=== PATIENT | female | born 1960 | race Caucasian/White ===

== ENCOUNTER 2017-03-27 19:10 | Emergency (ER) | payer MEDICARE, MEDICAID ==
[~2017-03-27 19:10] MED LIST: ISOVUE-370 76%-LOCM 1 ML ONE
[2017-03-27 19:33] LABS: Bilirubin Negative (Negative); Blood, Urine Negative (Negative); Glucose, Urine (Dipstick) Negative (Negative); Ketone, Urine Negative (Negative); Nitrite Negative (Negative); Protein, Urine (Dipstick) Negative (Neg-Trace); Urobilinogen 0.2 mg/dL (0.2-1.0)
[2017-03-27 19:36] LABS: Bacteria/HPF None Seen HPF (None Seen); Hyaline Casts/LPF 0-3 HYALINE CAST LPF (0-3 Hyaline); RBC/HPF 0-3 HPF (0-3); Squamous Epithelial 0-3 HPF (0-3); WBC/HPF 0-3 HPF (0-3)
[2017-03-27 19:38] LABS: #Basophils 0.1 thou/uL (0.0-0.2); #Eosinphils 0.3 thou/uL (0.0-0.7); #Lymphocytes 2.5 thou/uL (1.20-3.40); #Monocytes 0.5 thou/uL (0.11-0.59); %Basophils 0.6 % (0.0-1.0); %Eosinophils 3.9 % (0.0-10.0); %Lymphocytes 30.3 % (21.0-51.0); %Monocytes 5.8 % (0.0-10.0); Hematocrit 39.2 % (36.0-47.0); Mean Platelet Volume 9.1 fL (7.4-10.4); Red Blood Cell (RBC) Count 4.31 mill/uL (4.20-5.40); White Blood Cell (WBC) Count 8.4 thou/uL (4.8-10.8)
[2017-03-27 20:00] LABS: ALT (SGPT) 11 U/L (8-55); AST (SGOT) 13 U/L (5-34); Alkaline Phosphatase 100 U/L (40-150); Anion Gap 8 mmol/L (10-20); BUN (Urea Nitrogen) 16 mg/dL (9.8-20.1); Bilirubin, Total 0.2 mg/dL (0.2-1.2); Calc. Creatinine Clearance 0 mL/min (70-130); Calcium 9.3 mg/dL (7.8-10.44); Carbon Dioxide 26 mmol/L (22-29); Chloride 106 mmol/L (98-107); Estimated GFR-MDRD Greater than 90; Globulin 3.6 g/dL (2.4-3.5); Lipase 43 U/L (8-78); Protein, Total 7.4 g/dL (6.0-8.3)
[2017-03-27 21:02] LABS: PTT 29.6 SEC (22.9-36.1); Prothrombin Time 13.1 SEC (12.0-14.7)
[2017-03-27] MEDS ORDERED: Ondansetron HCl/PF 4 MG/2 ML Vial ONE (21:38)
[2017-03-27] MEDS ORDERED: Morphine 2 MG/ML SYRINGE ONE (21:38)
--- NOTE | 2017-03-27 21:49 | CT ---
CT OF ABDOMEN AND PELVIS PERFORMED WITH INTRAVENOUS CONTRAST: History: Abdominal pain x 1 week. Comparison: 01-23-17 FINDINGS: The lung bases are clear. Moderately large hiatal hernia is noted. The liver, spleen, and pancreas regions show no focal abnor malities. The spleen measures 12.5 cm. The gallbladder has been removed. Right and left adrenal glands and right and left kidneys are normal in size. There is no significant periaortic or mesenteric adenopathy. CT OF PELVIS WITH CONTRAST ENHANCEMENT: There appear to be appendectomy changes. The uterus also appears to have been removed. No adenopathy , mass, or free fluid. There are arthritic changes of the spine. IMPRESSION: 1. Large hiatal hernia. 2. Post op cholecystectomy change. 3. No acute abnormalities of the abdomen or pelvis. POS: [facility]
[2017-03-27] MEDS ORDERED: diphenhydrAMINE 50 MG/ML VIAL ONE (22:03)
[2017-03-27] MEDS ORDERED: Metoclopramide HCl 10 MG/2 ML VIAL ONE (22:42)
[2017-03-27] MEDS ORDERED: Pantoprazole 40 MG VIAL ONE (22:42)
== END 2017-03-27 23:46 | disposition home or self-care (01) ==
LOC: ERS 19:10
DX: R10.84 Generalized abdominal pain (principal); J45.909 Unspecified asthma, uncomplicated; E66.9 Obesity, unspecified; Z79.899 Other long term (current) drug therapy
CPT/HCPCS: 36415; 74177; 80053; 81003; 81015; 82274; 83690; 85025; 85610; 85730; 96361; 96372; 96374; 96375; C9113; J1200; J2270; J2405; J2765

== ENCOUNTER 2017-06-13 17:00 | Emergency (ER) | payer MEDICARE, MEDICAID ==
[2017-06-13] MEDS ORDERED: HYDROcodone/Acetaminophen 10/325 mg Tablet ONE (19:31)
--- NOTE | 2017-06-13 20:06 | ULT ---
VENOUS DOPPLER ULTRASOUND OF THE LEFT UPPER EXTREMITY 06/13/17 HISTORY: Left arm pain, concern for infection of the central line. Status post central line placement in t 2016. TECHNIQUE: Chavez scale ultrasound with color flow and spectral doppler imaging of the deep venous system of the l eft upper extremity is performed. FINDINGS: There is normal flow and spectral waveforms with associated compression in the left internal jugular, subclavian, axillary, brachial, radial, ulnar, basilic and cephalic veins. IMPRESSION: No evidence of DVT in the left upper extremity. POS: [facility]
--- NOTE | 2017-06-13 21:18 | RAD ---
LEFT HUMERUS TWO VIEWS 06/13/17 HISTORY: Left arm pain. Concern for infection. Status post central line in January. FINDINGS/IMPRESSION: No bony abnormality seen. POS: [facility]
--- NOTE | 2017-06-13 21:24 | RAD ---
CERVICAL SPINE FOUR VIEWS: 06/13/17 HISTORY: Left arm pain. FINDINGS: Degenerative changes are present. Most prominent at C4-5-6-7 levels. No fractures, subluxation, or sunshine [place] destruction is seen. IMPRESSION: Cervical spondylosis. POS: [facility]
== END 2017-06-13 21:53 | disposition home or self-care (01) ==
LOC: ERS 17:00
DX: M54.12 Radiculopathy, cervical region (principal); J45.909 Unspecified asthma, uncomplicated
CPT/HCPCS: 72050

== ENCOUNTER 2017-11-30 17:41 | Inpatient (IN) | payer MEDICARE, MEDICAID ==
[2017-11-30 18:13] LABS: #Basophils 0.1 thou/uL (0.0-0.2); #Eosinphils 0.3 thou/uL (0.0-0.7); #Lymphocytes 2.7 thou/uL (1.20-3.40); #Monocytes 0.5 thou/uL (0.11-0.59); #Neutrophils 4.9 thou/uL (1.40-6.50); %Basophils 0.9 % (0.0-1.0); %Eosinophils 3.7 % (0.0-10.0); %Lymphocytes 31.6 % (21.0-51.0); %Monocytes 6.2 % (0.0-10.0); %Neutrophils 57.7 % (42.0-75.0); Hemoglobin 5.1 g/dL (12.0-16.0); Mean Corpuscular HGB CONC 27.1 g/dL (32.0-36.0); Mean Corpuscular Hemoglobin 17.6 pg (27.0-31.0); Mean Corpuscular Volume 65.1 fL (78.0-98.0); Mean Platelet Volume 10.6 fL (7.4-10.4); Platelet Count 315 thou/uL (130-400); RBC Distribution Width 19.2 % (11.5-14.5); Red Blood Cell (RBC) Count 2.88 mill/uL (4.20-5.40); White Blood Cell (WBC) Count 8.4 thou/uL (4.8-10.8)
[2017-11-30] MEDS ORDERED: Pantoprazole 40 MG VIAL ONE (18:23)
[2017-11-30 18:31] LABS: Anisocytosis MODERATE=16-30 cells (100X) (0-5/hpf); Hypochromia SLIGHT = 6-15 cells (100X) (0-5/hpf); Large Platelets SLIGHT; MDiff Complete? YES; Microcytosis SLIGHT = 6-15 cells (100X) (0-5/hpf); Ovalocytes SLIGHT = 2-5 cells (100X) (0-1/hpf); PLT Morphology Comment Appears Adequate; Poikilocytosis SLIGHT = 6-15 cells (100X) (0-5/hpf); Polychromasia MODERATE = 3-4 cells (100X) (0-2/hpf); Target Cells SLIGHT = 2-5 cells (100X) (0-1/hpf); Tear Drops SLIGHT = 2-5 cells (100X) (0-1/hpf)
[2017-11-30 18:36] LABS: CKMB 0.5 ng/mL (0-6.6); Troponin I Less than 0.010 ng/mL (< 0.028)
[2017-11-30 18:45] LABS: ALT (SGPT) Less than 7 U/L (8-55); AST (SGOT) 11 U/L (5-34); Albumin 3.9 g/dL (3.5-5.0); Alkaline Phosphatase 88 U/L (40-150); Anion Gap 11 mmol/L (10-20); BUN (Urea Nitrogen) 15 mg/dL (9.8-20.1); Bilirubin, Total 0.3 mg/dL (0.2-1.2); CK (CPK) 19 U/L (29-168); Calc. Creatinine Clearance 0 mL/min (70-130); Calcium 8.8 mg/dL (7.8-10.44); Carbon Dioxide 23 mmol/L (22-29); Chloride 107 mmol/L (98-107); Estimated GFR-MDRD Greater than 90; Globulin 3.1 g/dL (2.4-3.5); Glucose 102 mg/dL (70-105); Lipase 31 U/L (8-78); Potassium 4.2 mmol/L (3.5-5.1); Sodium 137 mmol/L (136-145)
--- NOTE | 2017-11-30 18:47 | RAD ---
FRONTAL RADIOGRAPH CHEST: 11/30/17 COMPARISON: 01/25/17 HISTORY: Abdominal pain and diarrhea. FINDINGS: Lungs appear clear. heart and mediastinal contours are unremarkable. IMPRESSION: No acute findings. POS: [facility]
[2017-11-30 20:33] LABS: Bilirubin Negative (Negative); Blood, Urine Negative (Negative); Clarity CLEAR (Clear); Glucose, Urine (Dipstick) Negative (Negative); Leukocyte Small (Negative); Nitrite Negative (Negative); Protein, Urine (Dipstick) Negative (Neg-Trace); Specific Gravity, Urine 1.023 (1.002-1.036)
[2017-11-30 20:35] LABS: Bacteria/HPF None Seen HPF (None Seen); Hyaline Casts/LPF 0-3 HYALINE CAST LPF (0-3 Hyaline); Pathc Cast-AUWi Flag 0.43 (0-2.49); RBC/HPF 0-3 HPF (0-3); Squamous Epithelial 0-3 HPF (0-3)
[2017-12-01] MEDS ORDERED: Acetaminophen 325 MG TAB PO PRN ×2 (01:46→02:15)
[2017-12-01] MEDS ORDERED: Ondansetron ODT 4 MG TAB SL PRN (01:46)
[2017-12-01] MEDS ORDERED: Ondansetron HCl/PF 4 MG/2 ML Vial IVP PRN ×2 (01:46→02:15)
[2017-12-01 01:51] VITALS: BMI 33.6
[2017-12-01] MEDS ORDERED: Bisacodyl 5 MG TAB PO PRN ×2 (02:15)
[2017-12-01] MEDS ORDERED: Loratadine 10 MG TAB PO PRN (02:15)
[2017-12-01] MEDS ORDERED: Mag-Al 1200 mg/1200 mg/30 ML UDCUP PO PRN (02:15)
[2017-12-01] MEDS ORDERED: Senokot 8.6 MG TAB PO PRN ×2 (02:15)
[2017-12-01] MEDS ORDERED: Calcium Carbonate 500 MG ChewTAB PO PRN (02:15)
[2017-12-01] MEDS ORDERED: Diabetic Tussin 200 MG/10 ML UDCUP PO PRN (02:15)
[2017-12-01] MEDS ORDERED: Benzonatate 100 MG CAP PO PRN (02:15)
[2017-12-01] MEDS ORDERED: hydrALAZINE 20 MG/ML VIAL SLOW IVP PRN (02:15)
--- NOTE | 2017-12-01 03:59 | HP ---
DATE OF ADMISSION: 11/30/2017 PRIMARY CARE PHYSICIAN: Evens Munoz MD CHIEF COMPLAINT: Abdominal pain. HISTORY OF PRESENT ILLNESS: Ms. Franks is a 57-year-old female with past medical history of gastriti s and antral erosions and duodenal ulceration leading to anemia requiring transfusion in 2017, and gl aucoma, who presented to the ER with above-mentioned complaint. History is mainly obtained by the trevin bernstein herself and extensive electronic medical records have been reviewed. The patient was last admi tted to our facility in 01/2017 with severe symptomatic anemia requiring 4 units of blood transfusion . An EGD was done by Dr. Thomas at that time and was found to have gastritis with erosions in the ant rum as well as duodenal erosions and ulcerations. At that time, she was discharged on Protonix and f errous sulfate. The patient presented to the emergency room yesterday evening with complaints of severe epigastric pa in, ongoing for about 1 week which is similar to her previous pain with bleeding ulcer. She reports that she has been having some vomiting, but has not noted any blood in her vomitus. She denies any h ematochezia or melena. She is currently not on any medications. She denies taking any pain medicati ons except for Tylenol. She does not take aspirin or any other blood thinners. She is also not taki ng iron supplements or Protonix that was described to her last time. She has not seen her primary ca re physician since her last hospitalization. She presented to PCP's today and was sent to the emerge ncy room because of the ongoing symptoms. Upon presentation to the emergency room, she was hemodynamically stable; however, she was found to nelson ve a hemoglobin of 5.1. Her serum chemistries were otherwise unremarkable. Her urinalysis was sugge stive of UTI. She was given IV antibiotic as well as 80 mg of IV Protonix and 2 units of packed RBCs and is now being admitted for severe symptomatic anemia likely secondary to peptic ulcer disease. PAST MEDICAL HISTORY: 1. History of duodenal ulcer and gastric erosions. 2. History of symptomatic anemia secondary to #1, requiring transfusion. 3. Glaucoma. 4. Noncompliance. PAST SURGICAL HISTORY: 1. EGD in 01/2017. 2. Hysterectomy. 3. Oophorectomy. 4. . ALLERGIES: No known medication allergies. HOME MEDICATIONS: She just takes eyedrops for glaucoma as per the patient. FAMILY HISTORY: Significant for hypertension and diabetes in the mother's side. SOCIAL HISTORY: No history of drug, tobacco, or alcohol abuse. REVIEW OF SYSTEMS: A 12-point review of systems was done. It is negative except for those mentioned in the history and physical. Constitutional: Weight loss or gain, ability to conduct usual activit ies. Skin: Rash, itching. Eyes: Double vision, pain. ENT/Mouth: Nose bleeding, neck stiffness, pain, tenderness. Cardiovascular: Palpitations, dyspnea on exertion, orthopnea. Respiratory: Shor tness of breath, wheezing, cough, hemoptysis, fever or night sweats. Gastrointestinal: Poor appetit e, abdominal pain, heartburn, nausea, vomiting, constipation, or diarrhea. Genitourinary: Urgency, frequency, dysuria, nocturia. Musculoskeletal: Pain, swelling. Neurologic/Psychiatric: Anxiety, d epression. Allergy/Immunologic: Skin rash, bleeding tendency. LABORATORY AND DIAGNOSTIC DATA: CBC shows hemoglobin of 5.1 with hematocrit of 18.7, which is microc ytic in nature. WBC cell count within normal limits. Serum chemistry within normal limits. Cardiac enzymes normal. Urinalysis has trace leukocyte esterase and wbc's. Chest x-ray by my review has no evidence to suggest any pleural effusion, edema, or infiltrate. PHYSICAL EXAMINATION: VITAL SIGNS: Most recent vital signs, temperature 99.4, pulse of 89, respirations 16, saturating 97% on room air, blood pressure 118/52. GENERAL: She is awake, alert, oriented x3, in no acute distress. HEENT: She appears significantly pale. Conjunctival pallor is noticed. No scleral icterus. Mucous membrane is moist and pink. No oropharyngeal exudate or erythema. Head is normocephalic, atraumati c. Pupils are equal, reactive to light and accommodation. NECK: Supple without any lymphadenopathy, JVD, or bruit. CHEST: Clear to auscultation without any wheezing, rales, or rhonchi. Rate and rhythm is regular wi thout any murmur, rubs, or gallops. ABDOMEN: Tender to palpation in the epigastric region. Soft, nontender. No guarding, rebound, or r igidity. EXTREMITIES: Free of any cyanosis, clubbing, or edema. NEUROLOGIC: Nonfocal. SKIN: Free of any rashes or bruises. Feels warm and dry to touch. PSYCHIATRIC: Normal affect. IMPRESSION AND PLAN: 1. Severe symptomatic anemia. This is most likely secondary to ongoing peptic ulcer disease and occ ult gastrointestinal losses. Given the severity of her epigastric abdominal pain, we will obtain a C T scan of the abdomen and pelvis on an urgent basis to rule out any perforation. She has received 2 units of packed RBCs and we will check her H and H after that. We will start her on gentle IV fluid hydration and monitor her hemoglobin and hematocrit closely. Currently, she is hemodynamically stabl e; however, given the severity of anemia, she will be admitted to telemetry unit. She has received 1 dose of Protonix in the emergency room and we will continue PPI IV b.i.d. We will request consultat ion with Gastroenterology for the morning and keep her n.p.o. for possible endoscopy in the morning. 2. Peptic ulcer disease. We will PPI IV b.i.d. as above. 3. Glaucoma. Continue eyedrops as home dosages. CODE STATUS: FULL CODE. Discussed with the patient. DISPOSITION: Ms. Franks is currently being admitted for severe symptomatic anemia and abdominal pain , likely due to peptic ulcer disease. Estimated length of stay is at least 2-3 midnights. Further management will depend upon patient's cl inical course.
[2017-12-01] MEDS: Sodium Chloride 0.9% 1,000 ML IV SCH (07:52)
[2017-12-01] MEDS: cefTRIAXone\\ROCEPHIN 1 GM in Sodium Chloride 0.9% 100 ML IVPB SCH (07:52)
[2017-12-01 08:19] LABS: #Basophils 0.1 thou/uL (0.0-0.2); #Eosinphils 0.2 thou/uL (0.0-0.7); #Lymphocytes 2.1 thou/uL (1.20-3.40); #Monocytes 0.5 thou/uL (0.11-0.59); #Neutrophils 4.3 thou/uL (1.40-6.50); %Basophils 0.8 % (0.0-1.0); %Eosinophils 3.1 % (0.0-10.0); %Monocytes 6.8 % (0.0-10.0); %Neutrophils 60.3 % (42.0-75.0); Hemoglobin 6.5 g/dL (12.0-16.0); Mean Corpuscular HGB CONC 28.9 g/dL (32.0-36.0); Mean Corpuscular Hemoglobin 20.5 pg (27.0-31.0); Mean Corpuscular Volume 70.8 fL (78.0-98.0); Mean Platelet Volume 11.2 fL (7.4-10.4); Platelet Count 269 thou/uL (130-400); Red Blood Cell (RBC) Count 3.17 mill/uL (4.20-5.40); White Blood Cell (WBC) Count 7.1 thou/uL (4.8-10.8)
[2017-12-01 08:34] LABS: Anion Gap 8 mmol/L (10-20); BUN (Urea Nitrogen) 14 mg/dL (9.8-20.1); Calc. Creatinine Clearance 139 mL/min (70-130); Calcium 8.5 mg/dL (7.8-10.44); Carbon Dioxide 26 mmol/L (22-29); Chloride 107 mmol/L (98-107); Estimated GFR-MDRD Greater than 90; Glucose 100 mg/dL (70-105); Potassium 4.3 mmol/L (3.5-5.1); Sodium 137 mmol/L (136-145)
[2017-12-01] MEDS ORDERED: OLOPATADINE HCL EA EYE SCH (09:00)
[2017-12-01 09:03] LABS: Hypochromia MODERATE=16-30 cells (100X) (0-5/hpf); MDiff Complete? YES; Microcytosis MODERATE=15-30 cells (100X) (0-5/hpf); PLT Morphology Comment Appears Adequate; Polychromasia SLIGHT = 2-3 cells (100X) (0-2/hpf)
--- NOTE | 2017-12-01 09:05 | PDOC.EVN ---
Event Note - Event Note Event Note: EVALUATED PATIENT. STILL HAS SOME EPIGASTRIC DISCOMFORT. TTP IN EPIGASTRIUM. HGB IS SLIGHTLY BETTER, BUT HAS PROFOUND MICROCYTOSIS AND HX OF IRON DEFICIENCY. SHE IS NOT ON IRON. NO EVIDENCE OF GI BLEEDING (NO MELENA, HEMATOCHEZIA). HEMOCCULT NEGATIVE. GI CONSULT PENDING. POSSIBLE UTI ALTHOUGH LOOKS MILD AT BEST. ON ABX.
[2017-12-01] MEDS: Pantoprazole 40 MG VIAL IVP SCH (09:13)
[2017-12-01] MEDS: Ketotifen Fumarate 0.025% Ophth Soln 5 ml Bottle EA EYE SCH (09:14)
--- NOTE | 2017-12-01 09:52 | CT ---
PRELIMINARY REPORT/[facility]/EMERGENTY AFTER-HOURS PROCEDURE CT Abdomen and Pelvis Without Intravenous Contrast CLINICAL HISTORY: 57 years old, female; Pain; Upper abd pain / HX GI bleed TECHNIQUE: Axial computed tomography images of the abdomen and pelvis without intravenous contrast. Coronal refo rmatted images were created and reviewed. COMPARISON: No relevant prior studies available. FINDINGS: Lung bases: Minimal atelectasis in the medial right lower lobe adjacent to the moderate hiatal hernia . Mediastinum: Moderate hiatal hernia. ABDOMEN: Liver: Unremarkable. Gallbladder and bile ducts: Status post cholecystectomy. No ductal dilation. Pancreas: Unremarkable. No ductal dilation. Spleen: Borderline splenomegaly (13.2 CC dimension). Adrenals: Unremarkable. No mass. Kidneys and ureters: Unremarkable. No obstructing stones. No hydronephrosis. Stomach and bowel: Unremarkable. No obstruction. No mucosal thickening. PELVIS: Appendix: Prior appendectomy. Bladder: Unremarkable. No stones. Reproductive: Status post hysterectomy. ABDOMEN and PELVIS: Intraperitoneal space: Unremarkable. No free air. No significant fluid collection. Bones/joints: No acute fracture. No dislocation. Soft tissues: Small fat-containing umbilical hernia. Posterior subcutaneous edema in the lumbar regio n. Vasculature: Unremarkable. No abdominal aortic aneurysm. Lymph nodes: Unremarkable. No enlarged lymph nodes. IMPRESSION: 1. Moderate hiatal hernia. 2. Borderline splenomegaly (13.2 CC dimension). 3. Otherwise, no acute intra-abdominal or pelvic process. Thank you for allowing us to participate in the care of your patient. Dictated and Authenticated by: David Treadwell MD 12/01/2017 5:01 AM Central Time ([place] & [place]) FINAL REPORT CT OF ABDOMEN AND PELVIS: DATE: 12/01/17. COMPARISON: None. HISTORY: Upper abdominal pain with GI bleeding. FINDINGS: I agree with the preliminary [facility] report dictated by Dr. David Treadwell. The lack of contrast med ia limits assessment of the viscera, bowel vascular structures, and for lymphadenopathy. A moderate-sized hiatal hernia noted. Imaged lung bases unremarkable. Cholecystectomy clips are pre sent. No free intraperitoneal air or fluid. Uterus appears surgically absent. Liver, spleen, pancr eas, adrenal glands, and kidneys unremarkable. Limited assessment of the bowel demonstrates no acute findings. Small fat-containing umbilical herni a. Osseous structures demonstrate multilevel lower lumbar spine facet hypertrophic change. IMPRESSION: No acute findings. Incidental findings as described above. POS: [facility]
[2017-12-01] MEDS ORDERED: Lidocaine 1% PF 5 ML VIAL ONE (15:17)
[2017-12-01] MEDS ORDERED: PROPOFOL 200 MG/20 ML VIAL ONE (15:17)
--- NOTE | 2017-12-01 16:09 | CON ---
DATE OF CONSULTATION: 12/01/2017 REASON FOR CONSULTATION: Abdominal pain, anemia. CONSULTING PHYSICIAN: Dr. Burger. HISTORY OF PRESENT ILLNESS: The patient is a 57-year-old female with past medical history of glaucom a, gastritis, symptomatic anemia secondary to antral and duodenal ulcerations presenting with complai nts of abdominal pain. She states that she was in her usual state of health until approximately 1 we ek ago when she began having increased mid epigastric abdominal pain characterized as a sharp/stabbin g type character, nonradiating, constant with waxing and waning severity and would reach a severity o f /10. The pain was worse with vomiting and better only with taking Tylenol. When compared to her previous hospitalization in late 2016, she states that both the character and the location of the pa in of the same, but the severity is increased on this particular visit. She does have associated chriss sea and vomiting with his abdominal pain, but denies any bloody emesis. She also denies any use of N SAIDs and had only been taking Tylenol for pain ever since her duodenal ulceration. Currently, she d enies any fevers, chills, dysphagia, odynophagia, diarrhea, constipation, melena or hematochezia. On admission to the ER, she was noted to be hemodynamically stable; however, she did have a decrease in her baseline H&H with a hemoglobin of 5.1. She was subsequently given 2 units of PRBCs and admitt ed to the hospital for further evaluation. REVIEW OF SYSTEMS: A 10 category review of systems was obtained with all responses negative except f or the pertinent positives as listed in the HPI. PAST MEDICAL HISTORY: As per HPI. PAST SURGICAL HISTORY: Upper endoscopy in 01/2017, hysterectomy, oophorectomy, and . FAMILY HISTORY: Denies any GI malignancies. SOCIAL HISTORY: Denies any tobacco, alcohol or illicit drug use. OUTPATIENT MEDICATIONS: Eyedrops for glaucoma. ALLERGIES: No known drug allergies. PHYSICAL EXAMINATION: VITAL SIGNS: Temperature 98.3, pulse 76, blood pressure 119/56, respiratory rate 16, satting 99% on room air. GENERAL: The patient is lying in bed in mild distress. He is alert and oriented x4. NECK: Supple. No JVD noted. CARDIOVASCULAR: Regular rate and rhythm with no discernible murmurs, gallops or rubs. LUNGS: Clear to auscultation bilaterally with no discernible wheezes or rales. ABDOMEN: Normoactive bowel sounds, soft, nondistended. Tenderness to palpation in the midepigastric and periumbilical regions. EXTREMITIES: No cyanosis, clubbing or edema. LABORATORY DATA: CBC with a white blood cell count of 7.1, hemoglobin 6.5, hematocrit 22.5, platelet s 269. Chemistry with a sodium of 137, potassium 4.3, chloride 107, CO2 of 26, BUN 14, creatinine 0. 62, glucose 100. IMAGING DATA: EGD performed on 01/30/2017, showed a small hiatal hernia of the sliding type with no evidence of paraesophageal component. However, in the antrum, there were some small erosions and nod ular mucosa in the distal body of the stomach. Otherwise, no overt ulceration was seen in the gastri c antrum or duodenum. Biopsies obtained at the time of the endoscopy showed unremarkable duodenal mu cosa as well as chronic inactive gastritis without presence of Helicobacter pylori. ASSESSMENT AND PLAN: The patient is a 57-year-old female with past medical history of glaucoma, tmo ritis, antral and duodenal erosions and symptomatic anemia presenting with midepigastric abdominal pa in and significant anemia. Abdominal pain. The patient is presenting with a 1-week history of worsening midepigastric abdominal pain characterizes as sharp, stabbing type sensation, nonradiating, constant with waxing waning/ricardo ng severity and would reach a severity of 10/10 when compared to her previous hospitalization in 2016, she states that the pain is similar in both location and character, but is much more severe on this particular hospitalization. She had been placed on pantoprazole as an outpatient after her l ast upper endoscopy, but this was subsequently discontinued over the last few months. At this point, the likelihood of recurrent gastritis and/or possible ulcerations with bleeding is possible especial ly with her decreased H&H; however, she has not displayed any symptoms consistent with overt GI bleed ing. With the presence of a hiatal hernia, she could also have the presence of Juni erosions that could lead to an iron deficiency anemia over time. Differential could also include arteriovenous ma lformations due to fall lesions, gastritis, esophagitis, gastric or duodenal ulcerations and/or possi ble GI neoplasm (less likely). RECOMMENDATIONS: 1. We would continue to trend H&H and transfuse as necessary to maintain an H&H of 12/24. 2. Continue to monitor for signs of active gastrointestinal bleeding. 3. Please keep patient n.p.o. in preparation for upper endoscopy. 4. We will plan for upper endoscopy later today for evaluation of the upper GI tract in origin of he r abdominal pain and/or anemia. 5. We would continue pantoprazole 40 mg b.i.d. 6. We would avoid use of any NSAIDs during this hospitalization. Further recommendations to follow upper endoscopy. Please call with any questions.
[2017-12-01] MEDS ORDERED: Non-Formulary Item 1 EACH (Travoprost [Travatan Z] 1 DROP) EA EYE SCH (21:00)
[2017-12-02] MEDS: Ketotifen Fumarate 0.025% Ophth Soln 5 ml Bottle EA EYE SCH ×3 (02:04→20:04)
[2017-12-02] MEDS: Latanoprost 0.005% Ophth Soln 2.5 ml Bottle EA EYE SCH ×2 (02:04→20:03)
[2017-12-02] MEDS: Pantoprazole 40 MG VIAL IVP SCH ×3 (02:05→20:03)
[2017-12-02] MEDS: cefTRIAXone\\ROCEPHIN 1 GM in Sodium Chloride 0.9% 100 ML IVPB SCH (05:14)
--- NOTE | 2017-12-02 05:49 | OP ---
DATE OF PROCEDURE: 12/02/2017 INDICATION FOR PROCEDURE: Midepigastric abdominal pain, history of GI erosions. PROCEDURE: Esophagogastroduodenoscopy (diagnostic). DESCRIPTION OF PROCEDURE: After the risks and benefits of the procedure were explained to the patien t including risks of bleeding, infection, perforation, reactions to anesthesia and/or pain, informed consent was obtained. The patient was then taken to the endoscopy suite where deep sedation was admi nistered via propofol and anesthesia support. Once adequate sedation was achieved, the standard tom roscope was introduced into the mouth with intubation of the esophagus, stomach and the proximal smal l intestine with the findings listed below. The patient tolerated the procedure well with no immedia te perioperative complications. FINDINGS: ESOPHAGUS: Normal appearing mucosa was seen in the proximal, mid, and distal esophagus. There was n o evidence of erosions, ulcerations, mass, lesions or active/recent bleeding. The diaphragmatic pinc h was seen at 35 cm while the GE junction was well seen at 31 cm denoting a 4 cm hiatal hernia. STOMACH: Normal appearing mucosa was seen in the gastric cardia, fundus, body, antrum and incisura. There was no evidence of erosions, ulcerations, mass, lesions or active/recent bleeding. DUODENUM: Normal appearing mucosa was seen in both the duodenal bulb and second portion of the duode num. There was no evidence of erosions, ulcerations, mass, lesions or active/recent bleeding. IMPRESSION: 1. A 4 cm hiatal hernia without evidence of Juni's erosions. 2. Otherwise, normal upper endoscopy. RECOMMENDATIONS: 1. We will continue to trend H&H and transfuse as necessary to maintain an H&H of 7/21. 2. Continue to monitor for signs of active gastrointestinal bleeding. 3. We will continue PPI 40 mg, but can decrease to daily use. 4. Pain control per primary team. 5. We will consider non-GI source of abdominal pain and anemia. We will continue to follow. Please call with any questions.
[2017-12-02] MEDS: Sodium Chloride 0.9% 1,000 ML IV SCH ×2 (09:05→18:04)
[2017-12-02 11:04] LABS: #Eosinphils 0.2 thou/uL (0.0-0.7); #Lymphocytes 1.3 thou/uL (1.20-3.40); #Monocytes 0.4 thou/uL (0.11-0.59); #Neutrophils 4.4 thou/uL (1.40-6.50); %Basophils 0.4 % (0.0-1.0); %Eosinophils 2.9 % (0.0-10.0); %Lymphocytes 20.1 % (21.0-51.0); %Neutrophils 70.5 % (42.0-75.0); Hemoglobin 7.2 g/dL (12.0-16.0); Mean Corpuscular HGB CONC 28.6 g/dL (32.0-36.0); Mean Corpuscular Hemoglobin 20.1 pg (27.0-31.0); Mean Corpuscular Volume 70.3 fL (78.0-98.0); Mean Platelet Volume 11.5 fL (7.4-10.4); Platelet Count 301 thou/uL (130-400); Red Blood Cell (RBC) Count 3.58 mill/uL (4.20-5.40); White Blood Cell (WBC) Count 6.3 thou/uL (4.8-10.8)
[2017-12-02 11:55] LABS: Hypochromia MODERATE=16-30 cells (100X) (0-5/hpf); MDiff Complete? YES; Microcytosis MODERATE=15-30 cells (100X) (0-5/hpf); Polychromasia MODERATE = 3-4 cells (100X) (0-2/hpf)
--- NOTE | 2017-12-02 12:03 | RAD ---
UPPER GI WITH SMALL BOWEL EXAM: HISTORY: Abdomen pain. Anemia. FINDINGS: Upper GI shows small hiatal hernia with a moderate amount of gastroesophageal reflux. Stomach and du odenum otherwise have a normal appearance. Mucosal pattern of small bowel is unremarkable. Terminal ileum has a normal appearance and was reached at 15 minutes. Appendix is surgically absent. IMPRESSION: 1. Rapid small bowel transit. NO focal abnormalities are apparent. 2. Hiatal hernia with a moderate amount of gastroesophageal reflux. POS: [facility]
--- NOTE | 2017-12-02 19:17 | PRG ---
DATE OF SERVICE: 12/02/2017 REASON FOR CONSULTATION: Abdominal pain, anemia. SUBJECTIVE: The patient states that she did well overnight with no acute events or problems. Howeve r, she does continue to have severe midepigastric abdominal pain, unchanged in location, but mildly i mproved in severity. Currently, she denies any nausea, vomiting, fevers, chills, odynophagia, dyspha isaac, diarrhea or constipation. OBJECTIVE: VITAL SIGNS: Temperature 98.8, pulse 85, blood pressure 147/73, respiratory rate 20, satting 96% on room air. GENERAL: The patient lying in bed in no acute distress. Alert and oriented x4. CARDIOVASCULAR: Regular rate and rhythm. RESPIRATORY: Clear to auscultation bilaterally. ABDOMEN: Normoactive bowel sounds, soft, nondistended. Tenderness to palpation in midepigastric and periumbilical regions. EXTREMITIES: No cyanosis, clubbing or edema. LABORATORY DATA: CBC with white blood cell count of 6.3, hemoglobin 7.2, hematocrit 25.2 and platele ts 301. Chemistry with sodium of 137, potassium 4.3, chloride 107, CO2 26, BUN 14, creatinine 0.62, glucose 100. IMAGING DATA: Upper GI series/small bowel follow through obtained on 12/02/2017 showed a small hiata l hernia with a moderate amount of gastroesophageal reflux. Otherwise, the stomach, duodenum and ter mary ileum had normal in appearance with no mucosal defects; however, the terminal ileum was reached within 15 minutes after the administration of contrast indicative of rapid small bowel transit. No other focal abnormalities were apparent. ASSESSMENT AND PLAN: The patient is a 57-year-old female with past medical history of glaucoma, tom ritis, antral and duodenal erosions and symptomatic anemia presenting with midepigastric abdominal pa in and significant anemia. Abdominal pain: The patient initially presented with a 1-week history of worsening midepigastric abd ominal pain characterized as sharp, stabbing type sensation that would reach a severity of 10/10 (wor sened when compared to her previous hospitalization). She had been placed on PPI therapy as an outpa tient after her last upper endoscopy with modest improvement in her symptoms when reviewing her outpa tient GI clinic notes, however, this has been discontinued over the last few months. EGD performed o n 12/01/2017. A 4 cm hiatal hernia without evidence of Juni's erosions that could potentially gen erate anemia over time; however, the small bowel follow through did also highlight the hiatal hernia as well as the presence of a moderate amount of acid reflux which could potentially generate periumbi lical/midepigastric abdominal pain. Also seen on the small bowel follow through was the presence of rapid intestinal transit which could also generate a dumping type syndrome and further lead to exacer bations of abdominal pain, bloating, and possibly even diarrhea. At this point, the differential for her abdominal pain could include rapid intestinal transit with dumping syndrome, gastritis with H. p ylori (biopsies taken yesterday), gastroesophageal reflux disease and/or possible GI neoplasm (much l ess likely). RECOMMENDATIONS: 1. Would continue patient on pantoprazole 40 mg, but can decrease to daily use. 2. Would avoid use of any NSAIDs as an outpatient and during this hospitalization. 3. Consider dietitian consultation for possible dumping syndrome and dietary modifications related t o that. 4. Anemia. The patient is presenting with a history of symptomatic anemia as well as worsening of h er anemia on this hospitalization that seems to have responded well to the administration of PRBCs. Her current hemoglobin and hematocrit is indicative of an appropriate response to infusion of blood w ith no discernible gastrointestinal blood loss at this time. Esophagogastroduodenoscopy was negative for the presence of Juni's erosions or ulcerations within the upper GI tract that could contribut e to her worsening anemia over time. Colonoscopy evaluation was performed in 01/25/2017 and was nega tive for polyps, masses, lesions or AV malformations or bleeding sites or diverticulosis making a col onic origin of her anemia much less likely at this time. At this time, the origin of her anemia is l argely unknown, but the differential could include inadequate iron intake as an outpatient resulting in iron deficiency anemia, iatrogenic anemia from repeated hospitalizations, bone marrow dysfunction, small bowel neoplasm (less likely) or non-GI origin of her anemia. RECOMMENDATIONS: 1. We would continue to trend hemoglobin and hematocrit and transfuse as necessary to maintain an he moglobin and hematocrit of 7/21. 2. Continue to monitor clinically for signs of active gastrointestinal bleeding. 3. Would avoid use of any NSAIDs during this hospitalization or as an outpatient. 4. Colonoscopic evaluation is not necessarily indicated at this time; however, the patient could be followed up in the GI Clinic for possible capsule endoscopy. We will continue to follow at this time. Please call with any additional questions.
--- NOTE | 2017-12-02 20:28 | PDOC.PN ---
- Subjective Encounter Start Date: 12/02/17 Encounter Start Time: 08:30 FEELS A LITTLE BETTER TODAY. LESS ABDOMINAL PAIN. - Objective Resuscitation Status: Resuscitation Status FULL:Full Resuscitation Vital Signs & Weight: Vital Signs (12 hours) Temp Pulse Resp BP Pulse Ox 12/02/17 19:57 97.5 F L 85 18 148/65 H 95 12/02/17 15:32 98.8 F 85 20 147/73 H 96 12/02/17 11:06 98.2 F 77 15 136/68 99 Weight Admit Weight 196 lb 1.6 oz Weight 196 lb 1.6 oz I&O: 12/01/17 12/02/17 12/03/17 06:59 06:59 06:59 Intake Total 25 650 1680 Balance 25 650 1680 Result Diagrams: 12/02/17 10:35 12/01/17 08:04 Phys Exam - Physical Examination Constitutional: NAD HEENT: PERRLA, oral pharynx no lesions Neck: no nodes, no JVD, supple Respiratory: no wheezing, no rales, no rhonchi, clear to auscultation bilateral Cardiovascular: RRR, no significant murmur Gastrointestinal: soft, non-tender, no distention Musculoskeletal: no edema Psychiatric: normal affect Skin: normal turgor Dx/Plan (1) Abdominal pain Code(s): R10.9 - UNSPECIFIED ABDOMINAL PAIN Status: Acute Qualifiers: Abdominal location: generalized Qualified Code(s): R10.84 - Generalized abdominal pain Plan: HAD ENDOSCOPY WITH NO SPECIFIC LESIONS. HAD HH, BUT NO CORNELIUS'S LESIONS. ON PPI. HAD UGI WITH VERY RAPID TRANSIT TIME. DISCUSSED WITH GI. MAY BE CONTRIBUTORY. WILL TRY A LOW RESIDUE DIET AND SEE IF THAT HELPS. SHE WILL NEED IRON SUPPLEMENTATION AND THAT MAY SLOW THE GUT WELL. (2) Iron deficiency anemia Code(s): D50.9 - IRON DEFICIENCY ANEMIA, UNSPECIFIED Status: Acute Plan: START ORAL IRON SUPPLEMENTATION. WILL NEED CLOSE OUTPATIENT FOLLOWUP. (3) Hiatal hernia Code(s): K44.9 - DIAPHRAGMATIC HERNIA WITHOUT OBSTRUCTION OR GANGRENE Status: Chronic Plan: PPI. (4) Glaucoma Code(s): H40.9 - UNSPECIFIED GLAUCOMA Status: Acute Plan: CONTINUE GTTS. (5) UTI (urinary tract infection) Status: Acute Plan: ON ROCEPHIN. SO FAR CULTURES ARE NEGATIVE. - Plan * ABOVE.
[2017-12-03] MEDS: cefTRIAXone\\ROCEPHIN 1 GM in Sodium Chloride 0.9% 100 ML IVPB SCH (03:19)
[2017-12-03] MEDS: Sodium Chloride 0.9% 1,000 ML IV SCH (04:39)
[2017-12-03 05:34] LABS: #Eosinphils 0.3 thou/uL (0.0-0.7); #Lymphocytes 1.7 thou/uL (1.20-3.40); #Monocytes 0.4 thou/uL (0.11-0.59); #Neutrophils 3.5 thou/uL (1.40-6.50); %Basophils 0.6 % (0.0-1.0); %Eosinophils 5.5 % (0.0-10.0); %Monocytes 7.4 % (0.0-10.0); %Neutrophils 58.5 % (42.0-75.0); Hemoglobin 6.6 g/dL (12.0-16.0); Mean Corpuscular Hemoglobin 20.5 pg (27.0-31.0); Mean Corpuscular Volume 70.8 fL (78.0-98.0); Mean Platelet Volume 10.9 fL (7.4-10.4); Platelet Count 291 thou/uL (130-400); RBC Distribution Width 22.4 % (11.5-14.5); Red Blood Cell (RBC) Count 3.21 mill/uL (4.20-5.40); White Blood Cell (WBC) Count 5.9 thou/uL (4.8-10.8)
[2017-12-03 05:40] LABS: Anion Gap 10 mmol/L (10-20); BUN (Urea Nitrogen) 11 mg/dL (9.8-20.1); Calc. Creatinine Clearance 129 mL/min (70-130); Calcium 8.6 mg/dL (7.8-10.44); Carbon Dioxide 24 mmol/L (22-29); Chloride 109 mmol/L (98-107); Estimated GFR-MDRD 90; Glucose 104 mg/dL (70-105); Sodium 139 mmol/L (136-145)
[2017-12-03] MEDS: Pantoprazole 40 MG VIAL IVP SCH (09:15)
[2017-12-03] MEDS: Ketotifen Fumarate 0.025% Ophth Soln 5 ml Bottle EA EYE SCH ×2 (09:15→21:54)
--- NOTE | 2017-12-03 11:21 | PDOC.PN ---
- Subjective Encounter Start Date: 12/03/17 Encounter Start Time: 11:20 FEELS GENERALLY WELL. HAS MILD ABDOMINAL SORENESS, BUT STATES IT IS FROM REPEATED EXAMS. HAS BEEN AMBULATING. - Objective Resuscitation Status: Resuscitation Status FULL:Full Resuscitation Vital Signs & Weight: Vital Signs (12 hours) Temp Pulse Resp BP Pulse Ox 12/03/17 08:15 98.2 F 77 16 98 12/03/17 07:38 98.2 F 77 16 132/66 98 12/03/17 04:00 97.9 F 84 18 130/67 97 12/03/17 00:17 96 12/03/17 00:00 98.0 F 83 18 153/64 H 97 Weight Admit Weight 196 lb 1.6 oz Weight 196 lb 1.6 oz I&O: 12/02/17 12/03/17 12/04/17 06:59 06:59 06:59 Intake Total 650 2825 Balance 650 2825 Result Diagrams: 12/03/17 05:04 12/03/17 05:04 Phys Exam - Physical Examination Constitutional: NAD Neck: no JVD, supple Respiratory: no wheezing, no rales, no rhonchi, clear to auscultation bilateral Cardiovascular: RRR, no significant murmur, no rub Gastrointestinal: soft, non-tender, no distention, positive bowel sounds MILD TTP IN THE EPIGASTRIUM Musculoskeletal: no edema Neurological: non-focal Psychiatric: normal affect Dx/Plan (1) Abdominal pain Code(s): R10.9 - UNSPECIFIED ABDOMINAL PAIN Status: Acute Qualifiers: Abdominal location: generalized Qualified Code(s): R10.84 - Generalized abdominal pain Plan: RAPID TRANSIT TIME ON UGI. LOW RESIDUE DIET. (2) Iron deficiency anemia Code(s): D50.9 - IRON DEFICIENCY ANEMIA, UNSPECIFIED Status: Acute Plan: START ORAL IRON SUPPLEMENTATION TODAY. HGB BELOW 7. WILL TRANSFUSE ONE UNIT. (3) Hiatal hernia Code(s): K44.9 - DIAPHRAGMATIC HERNIA WITHOUT OBSTRUCTION OR GANGRENE Status: Chronic (4) Glaucoma Code(s): H40.9 - UNSPECIFIED GLAUCOMA Status: Acute (5) UTI (urinary tract infection) Status: Acute Plan: NEGATIVE CULTURE. LOOKING LESS LIKE THIS WAS A TRUE INFECTION. WILL DC ERIKAHIN. - Plan * ABOVE.
[2017-12-03] MEDS ORDERED: Ferrous Sulfate 325 MG TAB PO SCH (11:45)
--- NOTE | 2017-12-03 13:27 | EKG ---
Test Reason : Blood Pressure : / mmHG Vent. Rate : 097 BPM Atrial Rate : 097 BPM P-R Int : 132 ms QRS Dur : 090 ms QT Int : 358 ms P-R-T Axes : 042 018 065 degrees QTc Int : 454 ms Normal sinus rhythm Voltage criteria for left ventricular hypertrophy Nonspecific ST abnormality Abnormal ECG Confirmed by HERBERTH CASAS ([id number]), editorial cartoonist RICARDA CALZADA ([id number]) on 12/03/2017 1:27:25 PM Referred By: Confirmed By:HERBERTH CASAS
--- NOTE | 2017-12-03 15:44 | PRG ---
DATE OF SERVICE: 12/03/2017 REASON FOR CONSULTATION: Abdominal pain, anemia. SUBJECTIVE: Today, the patient states that her abdominal pain is much improved and is actually pain free if she is lying flat and does not put pressure to the abdomen. She currently denies any nausea, vomiting, fevers, chills, odynophagia, dysphagia, diarrhea, constipation, or GI bleeding. OBJECTIVE: VITAL SIGNS: Temperature 98.9, pulse 81, blood pressure 154/80, respiratory rate 18, satting 93% on room air. GENERAL: The patient is lying in bed in no acute distress. Alert and oriented x4. CARDIOVASCULAR: Regular rate and rhythm. RESPIRATORY: Clear to auscultation bilaterally. ABDOMEN: Normoactive bowel sounds, soft, nondistended, mild tenderness to palpation in the midepigas tric region. EXTREMITIES: No cyanosis, clubbing or edema. LABORATORY DATA: CBC with a white blood cell count of 5.9, hemoglobin 6.6, hematocrit 22.7, platelet s 291. Chemistry with a sodium of 139, potassium 4, chloride 109, CO2 of 24, BUN 11, creatinine 0.67 , glucose 104. IMAGING DATA: No current GI imaging is available for review. ASSESSMENT AND PLAN: The patient is a 57-year-old female with past medical history of glaucoma, tom ritis, antral and duodenal erosions and symptomatic anemia presenting with midepigastric abdominal pa in and symptomatic anemia. Abdominal pain. The patient initially presented with a one week history of worsening midepigastric a bdominal pain characterized as sharp, stabbing type sensation that would reach the severity of 10/10. She underwent upper endoscopy on 12/01/2013 with the only findings of a hiatal hernia without evide nce of Juni's erosions. She also had a small bowel follow through that highlighted the hernia and a moderate amount of gastric reflux, but no other abnormal findings. With changing of her diet and admission to PPIs, her abdominal pain has continued to improve with her abdominal pain, minimal today . RECOMMENDATIONS: 1. We would continue patient on pantoprazole 40 mg daily. 2. We would avoid any NSAID use as outpatient or inpatient. 3. Continue dietary modifications related to possible dumping syndrome. Anemia. The patient is also presenting with a history of symptomatic anemia that had carried into [facility] hospitalization. During this hospitalization, she has continued to have a decrease in her H&H, despite any evidence of active bleeding either within the GI tract or without. EGD performe d on 12/01/2017 was negative for any overt bleeding that could contribute to her anemia. She also nelson d a colonoscopy performed on 01/25/2017 that was negative for polyps, masses, lesions or AV malformat ions that would contribute to bleeding. At this time, the origin of her anemia is largely unknown wi th a GI origin of her anemia being less likely. Differential could include inadequate iron intake as an outpatient, iatrogenic anemia from repeated hospitalization, bone marrow dysfunction, small bowel neoplasm or bleeding (less likely) or non-GI origin of her anemia. She does also have a CT scan on admission that did not show any particular abnormalities that would contribute to her anemia as well. RECOMMENDATIONS: 1. We would continue to trend H&H and transfuse as necessary to maintain an H&H of 7/21. 2. Continue to monitor clinically for signs of active gastrointestinal bleeding. 3. Avoid any NSAIDs during this hospitalization. 4. We would recommend a tagged RBC scan for possible localization of a bleeding source to further gu sasha management in relation to her anemia. We will continue to follow at this time. Please call with any additional questions.
--- NOTE | 2017-12-03 19:29 | NM ---
NUCLEAR MEDICINE BLEEDING SCAN: 12/03/17 HISTORY: Anemia. COMPARISON: None. TECHNIQUE: Patient administered 28 millicuries of technetium tagged RBCs. Imaging is performed for a total of 91 minutes. FINDINGS: Expected distribution of the radiotracer. There is no sonographic evidence of a gastrointestinal blee d. IMPRESSION: No scintigraphic evidence of a GI bleed. POS: [facility]
[2017-12-03] MEDS: Latanoprost 0.005% Ophth Soln 2.5 ml Bottle EA EYE SCH (21:54)
[2017-12-03] MEDS: cloNIDine 0.1 MG TAB PO PRN (22:13)
[2017-12-04] MEDS: Sodium Chloride 0.9% 1,000 ML IV SCH (02:28)
[2017-12-04 05:23] LABS: #Eosinphils 0.4 thou/uL (0.0-0.7); #Lymphocytes 1.7 thou/uL (1.20-3.40); #Monocytes 0.3 thou/uL (0.11-0.59); #Neutrophils 2.9 thou/uL (1.40-6.50); %Basophils 0.7 % (0.0-1.0); %Eosinophils 7.1 % (0.0-10.0); %Lymphocytes 31.6 % (21.0-51.0); %Monocytes 6.2 % (0.0-10.0); %Neutrophils 54.4 % (42.0-75.0); Hemoglobin 7.5 g/dL (12.0-16.0); Mean Corpuscular HGB CONC 29.3 g/dL (32.0-36.0); Mean Corpuscular Hemoglobin 21.6 pg (27.0-31.0); Mean Corpuscular Volume 73.5 fL (78.0-98.0); Mean Platelet Volume 11.4 fL (7.4-10.4); Platelet Count 264 thou/uL (130-400); RBC Distribution Width 23.8 % (11.5-14.5); Red Blood Cell (RBC) Count 3.48 mill/uL (4.20-5.40); White Blood Cell (WBC) Count 5.4 thou/uL (4.8-10.8)
[2017-12-04 05:40] LABS: ALT (SGPT) Less than 7 U/L (8-55); AST (SGOT) 18 U/L (5-34); Albumin 3.3 g/dL (3.5-5.0); Alkaline Phosphatase 75 U/L (40-150); Anion Gap 11 mmol/L (10-20); BUN (Urea Nitrogen) 10 mg/dL (9.8-20.1); Bilirubin, Total 0.5 mg/dL (0.2-1.2); Calc. Creatinine Clearance 137 mL/min (70-130); Calcium 8.3 mg/dL (7.8-10.44); Carbon Dioxide 22 mmol/L (22-29); Chloride 109 mmol/L (98-107); Estimated GFR-MDRD Greater than 90; Globulin 2.7 g/dL (2.4-3.5); Glucose 104 mg/dL (70-105); Potassium 4.1 mmol/L (3.5-5.1); Sodium 138 mmol/L (136-145)
[2017-12-04] MEDS ORDERED: Ferrous Sulfate 325 MG TAB PO SCH (08:00)
[2017-12-04] MEDS: Ferrous Sulfate 325 MG TAB PO SCH (08:10)
[2017-12-04] MEDS: Ketotifen Fumarate 0.025% Ophth Soln 5 ml Bottle EA EYE SCH ×2 (08:11→21:21)
--- NOTE | 2017-12-04 12:01 | PRG ---
DATE OF SERVICE: 12/04/2017 REASON FOR CONSULTATION: Abdominal pain, anemia. SUBJECTIVE: Today, the patient states that her abdominal pain is much improved unless pressure is be ing placed on either by staff or herself. She currently denies any nausea, vomiting, fevers, chills, odynophagia, dysphagia, diarrhea, constipation, or GI bleeding. OBJECTIVE: VITAL SIGNS: Temperature 97.7, pulse 72, blood pressure 117/64, respiratory rate 16, and satting 98% on room air. GENERAL: Patient is lying in bed in no acute distress. Alert and oriented x4. CARDIOVASCULAR: Regular rate and rhythm. RESPIRATORY: Clear to auscultation bilaterally. ABDOMEN: Normoactive bowel sounds, soft, nondistended. Mild tenderness to palpation in the midepiga stric region. EXTREMITIES: No cyanosis, clubbing, or edema. LABORATORY DATA: CBC with a white blood cell count of 5.4, hemoglobin 7.5, hematocrit 25.6, platelet s 264. Chemistry with a sodium 138, potassium 4.1, chloride 109, CO2 of 22, BUN 10, creatinine 0.63, glucose 104. IMAGING DATA: No current GI imaging is available for review. ASSESSMENT AND PLAN: The patient is a 57-year-old female with past medical history of glaucoma, tom ritis, antral and duodenal erosions and symptomatic anemia presenting with midepigastric abdominal pa in and symptomatic anemia. Abdominal pain. The patient initially presented with 1-week history of worsening midepigastric abdominal pain that nelson s slowly improved throughout this hospitalization. She underwent upper endoscopy on 12/31/2017 with the only findings of a large hiatal hernia without evidence of Juni's erosions. She also had a sm all-bowel follow through that highlighted the hernia, as well as a moderate amount of gastric reflux, but no other abnormal findings with changing her diet during this admission and with the administrat ion restarting a PPI. Her abdominal pain is continued to improve with acid reflux and/or the hiatal hernia contributing to her midepigastric abdominal pain (most likely acid reflux). RECOMMENDATIONS: 1. We would continue patient on pantoprazole 40 mg daily. 2. We would avoid any NSAID use as an outpatient or inpatient. 3. Continue dietary modifications related to possible dumping syndrome. 4. Anemia. The patient is also presenting with a history of symptomatic anemia that has carried into this [facility] hospitalization. She was admitted during this hospitalization with a decrease in her H&H that h as continued to decrease despite no evidence of active gastrointestinal bleeding either within the GI tract without, EGD performed on 12/01/2017 with negative for any overt bleeding that can contribute to her anemia. She also had a colonoscopy performed on 01/25/2017 that was negative for any etiology that would contribute to her current anemia. A tagged red cell scan obtained on 12/03/2017, was als o negative for GI bleeding. At this time, the origin of her anemia is largely unknown with a GI orig in of her anemia being less likely. RECOMMENDATIONS: 1. We would continue to trend H&H and transfuse as necessary to maintain an H&H of 7/21. 2. Continue to monitor clinically for signs of active gastrointestinal bleeding. 3. We could consider a capsule endoscopy as an outpatient once the patient is discharged for further evaluation of her anemia. 4. We would strongly consider a non-GI etiology of her anemia. We will sign off at this time. Please call with any additional questions.
--- NOTE | 2017-12-04 12:27 | PDOC.PN ---
- Subjective Encounter Start Date: 12/04/17 Encounter Start Time: 12:25 Continues to have some upper abdominal discomfort at times. Feels better than admission in general. She did admit that she is depressed and very bothered by the fact that she is basically here alone and her daughter won't come here to see her. She would be interested in an anti-depressant. - Objective Resuscitation Status: Resuscitation Status FULL:Full Resuscitation MAR Reviewed: Yes Vital Signs & Weight: Vital Signs (12 hours) Temp Pulse Resp BP Pulse Ox 12/04/17 11:59 97.4 F L 74 16 150/81 H 97 12/04/17 08:00 97.7 F 72 16 98 12/04/17 07:49 97.7 F 72 16 117/64 98 12/04/17 04:00 97.9 F 80 18 132/70 98 Weight Admit Weight 196 lb 1.6 oz Weight 196 lb 1.6 oz I&O: 12/03/17 12/04/17 12/05/17 06:59 06:59 06:59 Intake Total 2825 1150 Output Total 4 Balance 2825 1146 Result Diagrams: 12/04/17 05:06 12/04/17 05:06 Phys Exam - Physical Examination Constitutional: NAD Respiratory: no wheezing, no rales Cardiovascular: RRR, no significant murmur, no rub Gastrointestinal: soft, no distention, positive bowel sounds Slight TTP in epigastrium Psychiatric: A&O x 3 Deviation from normal: Tearful Dx/Plan (1) Abdominal pain Code(s): R10.9 - UNSPECIFIED ABDOMINAL PAIN Status: Acute Qualifiers: Abdominal location: generalized Qualified Code(s): R10.84 - Generalized abdominal pain Plan: Negative workup. SSRI may be of some benefit. Very fast transit on UGI study. May have some dumping syndrome. On low residue diet. (2) Iron deficiency anemia Code(s): D50.9 - IRON DEFICIENCY ANEMIA, UNSPECIFIED Status: Acute Plan: No source of GI bleeding identified. The very rapid gut transit could potentially be culprit in some malabsorbtion. Started some iron supplementation. May still need small bowel eval by GI. I will check a retic count, [place]'s test, LDH, TSH/T4, and manual diff to look for schistocytes in a.m. If all ok, can discharge to home for outpatient followup. (3) Hiatal hernia Code(s): K44.9 - DIAPHRAGMATIC HERNIA WITHOUT OBSTRUCTION OR GANGRENE Status: Chronic (4) Glaucoma Code(s): H40.9 - UNSPECIFIED GLAUCOMA Status: Acute Plan: Continue gtts. (5) UTI (urinary tract infection) Status: Resolved - Plan * Anticipate discharge tomorrow on low residue diet if labs are ok. Will need rx for iron and citalopram. Will need to stay on PPI.
[2017-12-04] MEDS ORDERED: Citalopram 20 MG TAB PO SCH (13:00)
--- NOTE | 2017-12-04 16:44 | PDOC.EVN ---
Event Note - Event Note Event Note: NOTIFIED THAT PATIENT HAD A SHORT RUN OF ASYMPTOMATIC VT. WILL STOP THE CITALOPRAM.
[2017-12-04] MEDS: cloNIDine 0.1 MG TAB PO PRN (21:17)
[2017-12-04] MEDS: Latanoprost 0.005% Ophth Soln 2.5 ml Bottle EA EYE SCH (21:18)
[2017-12-05 05:48] LABS: Reticulocyte Count 3.7 % (0.5-1.5)
[2017-12-05 06:09] LABS: Hemoglobin 7.8 g/dL (12.0-16.0); Mean Corpuscular HGB CONC 28.7 g/dL (32.0-36.0); Mean Corpuscular Hemoglobin 21.2 pg (27.0-31.0); Mean Corpuscular Volume 73.8 fL (78.0-98.0); Mean Platelet Volume 11.2 fL (7.4-10.4); Platelet Count 271 thou/uL (130-400); RBC Distribution Width 24.3 % (11.5-14.5); Red Blood Cell (RBC) Count 3.68 mill/uL (4.20-5.40); White Blood Cell (WBC) Count 6.4 thou/uL (4.8-10.8)
[2017-12-05 06:22] LABS: Free T4 (Free Thyroxine) 0.85 ng/dL (0.70-1.48); Thyroid Stimulating Hormone 2.9522 uIU/mL (0.35-4.94)
[2017-12-05] MEDS: Ketotifen Fumarate 0.025% Ophth Soln 5 ml Bottle EA EYE SCH (08:22)
[2017-12-05] MEDS: Ferrous Sulfate 325 MG TAB PO SCH (08:22)
[2017-12-05 11:59] VITALS: BP 137/70; TEMP 98
--- NOTE | 2017-12-05 13:24 | DIS ---
DATE OF ADMISSION: 12/01/2017 DATE OF DISCHARGE: 12/05/2017 ADMITTING DIAGNOSIS: Acute gastrointestinal bleed. DISCHARGE DIAGNOSIS: Acute gastrointestinal bleed. SECONDARY DIAGNOSES: Anemia, acute blood loss, history of glaucoma, history of duodenal ulcer. CONSULTANTS INVOLVED IN THE CARE: Dr. Sriram Araiza from GI. PROCEDURES DONE DURING THIS ADMISSION: 1. Esophagogastroduodenoscopy which showed a 4 cm hiatal hernia without evidence of any Juni lesi ons. Otherwise, normal esophagogastroduodenoscopy. 2. GI bleeding nuclear scan was done which showed no evidence of any acute gastrointestinal bleed. HISTORY OF PRESENT ILLNESS AND HOSPITAL COURSE.: In brief, this is a 57-year-old white female, morbi dly obese with a known history of glaucoma and gastritis, history of symptomatic anemia secondary to antral and duodenal ulcerations in the past. She was complaining of increasing abdominal pain, espec ially in the mid epigastric region, it was sharp and stabbing type, nonradiating. She came to the ER , had had a CT of the abdomen which showed no evidence of any acute findings for acute abdomen. So G I was consulted as the patient had a low hemoglobin of 6.5, but there was no obvious evidence of love ck stool or any occult blood. The patient was seen by GI because of the abdominal pain and acute roberto p in her hemoglobin. EGD was done which was unremarkable except for hiatal hernia and gastric bowel series was also done which showed no evidence of any obstruction and nuclear tagged scan was also don e which did not show any evidence of active bleeding. The patient was monitored for a couple of days and her hemoglobin started going up and she was on iron medications. It is recommended to continue on the Protonix at this time and plan was to evaluate her lower GI with colonoscopy and also a capsul e endoscopy as outpatient. The patient was reassured and explained to the patient need to return [facility] to the ER if she notices any acute GI bleed so that she could get a CT angiogram and confirming the bleeding. The patient understood the plan and she was discharged home in stable condition. PHYSICAL EXAMINATION: On date of discharge: VITAL SIGNS: Blood pressures are 137/70, heart rate 68, respiratory rate is 18, saturation 96%. GENERAL: The patient is moderately built and moderately nourished, does not appear to be in acute di stress at this time. She is alert and oriented x3. HEENT: Atraumatic, normocephalic, PERRLA. Extraocular muscles were intact. CARDIOVASCULAR: S1, S2 normal. No murmurs, rubs or gallops. LUNGS: Bilateral air entry was equal. No wheezing, no crackles. ABDOMEN: Soft, nontender. No guarding or rebound tenderness. Bowel sounds normal. MUSCULOSKELETAL: No calf tenderness. No pedal edema. No joint tenderness, no joint swelling. DISCHARGE MEDICATIONS: 1. Clonidine 0.1 mg p.o. q.4 hours. 2. Ferrous sulfate 325 mg p.o. daily. 3. Pantoprazole 40 mg p.o. q.12h. 4. Travoprost 2.5 1 drop at bedtime. DISCHARGE INSTRUCTIONS: 1. Continue activity as tolerated. 2. Advised to follow up with GI in 1-2 weeks. Advised to follow up with primary care physician in 1 -2 weeks. 3. Advised to monitor her gastrointestinal blood loss if she notices any acute bleeding, advised her to return back to the ER immediately I spent 45 minutes with this patient at the day of discharge.
== END 2017-12-05 13:00 | disposition home or self-care (01) | DRG 812 ==
LOC: ERS 17:41 → 2SE 21:42
PROVIDERS: ADMIT Internal Medicine; ATTEND Internal Medicine
PROC: 0DJ08ZZ Inspection of Upper Intestinal Tract, Via Natural or Artificial Opening Endoscopic (ICD-10-PCS; principal; 2017-12-02)
DX: D62 Acute posthemorrhagic anemia (principal); I47.2 Ventricular tachycardia; N39.0 Urinary tract infection, site not specified; K44.9 Diaphragmatic hernia without obstruction or gangrene; E66.01 Morbid (severe) obesity due to excess calories; Z68.33 Body mass index [BMI] 33.0-33.9, adult; H40.9 Unspecified glaucoma; K21.9 Gastro-esophageal reflux disease without esophagitis; R10.13 Epigastric pain; Z83.3 Family history of diabetes mellitus; Z82.49 Family history of ischemic heart disease and other diseases of the circulatory system; K27.9 Peptic ulcer, site unspecified, unspecified as acute or chronic, without hemorrhage or perforation
CPT/HCPCS: 36410; 36415; 36430; 71045; 74176; 74249; 78278; 80048; 80053; 81003; 81015; 82274; 82550; 82553; 83615; 83690; 83735; 84439; 84443; 84484; 85007; 85025; 85027; 85046; 86850; 86870; 86880; 86900; 86901; 86905; 86922; 87086; 93005; 96361; 96374; A9604; C9113; J0696; J2001; J2270; J2704; J7050; P9016

== ENCOUNTER 2018-01-02 13:55 | Outpatient (CLI) | payer MEDICARE, MEDICAID | END 2018-01-02 13:56 | disposition home or self-care (01) | LOC: BICMAMMO 13:55 | PROVIDERS: ATTEND Obstetrics & Gynecology | DX: Z12.31 Encounter for screening mammogram for malignant neoplasm of breast (principal); Z80.3 Family history of malignant neoplasm of breast | CPT/HCPCS: 77063; 77067 ==

== ENCOUNTER 2018-06-17 00:15 | Inpatient (IN) | payer MEDICARE, MEDICAID ==
[2018-06-17 00:55] LABS: Hemoglobin 4.8 g/dL (12.0-16.0); Red Blood Cell (RBC) Count 2.65 mill/uL (4.20-5.40); White Blood Cell (WBC) Count 8.8 thou/uL (4.8-10.8)
[2018-06-17 00:55] LABS: Bilirubin Negative (Negative); Blood, Urine Negative (Negative); Clarity CLEAR (Clear); Glucose, Urine (Dipstick) Negative (Negative); Leukocyte Small (Negative); Nitrite Negative (Negative); Protein, Urine (Dipstick) Negative (Neg-Trace); pH, Urine 5.5 (5.0-9.0)
[2018-06-17 00:57] LABS: Bacteria/HPF None Seen HPF (None Seen); Hyaline Casts/LPF 4-6 HYALINE CAST LPF (0-3 Hyaline); Pathc Cast-AUWi Flag 0.87 (0-2.49); RBC/HPF 0-3 HPF (0-3)
[2018-06-17 01:08] LABS: ALT (SGPT) 7 U/L (8-55); AST (SGOT) 11 U/L (5-34); Albumin 3.8 g/dL (3.5-5.0); Alkaline Phosphatase 91 U/L (40-150); Anion Gap 13 mmol/L (10-20); BUN (Urea Nitrogen) 19 mg/dL (9.8-20.1); Bilirubin, Total 0.4 mg/dL (0.2-1.2); Calc. Creatinine Clearance 0 mL/min (70-130); Carbon Dioxide 23 mmol/L (22-29); Chloride 107 mmol/L (98-107); Estimated GFR-MDRD 80; Globulin 3.1 g/dL (2.4-3.5); Glucose 139 mg/dL (70-105); Lipase 41 U/L (8-78); Potassium 3.9 mmol/L (3.5-5.1); Protein, Total 6.9 g/dL (6.0-8.3); Sodium 139 mmol/L (136-145)
[2018-06-17 01:10] LABS: Mean Corpuscular Hemoglobin 18.2 pg (27.0-31.0); Mean Corpuscular Volume 64.9 fL (78.0-98.0); Mean Platelet Volume 10.7 fL (7.4-10.4); Platelet Count 386 thou/uL (130-400); RBC Distribution Width 19.1 % (11.5-14.5); Reflex for Review?? YES
[2018-06-17 01:31] LABS: #Eosinphils 0.2 thou/uL (0.0-0.7); #Lymphocytes 1.9 thou/uL (1.20-3.40); #Monocytes 0.5 thou/uL (0.11-0.59); #Neutrophils 6.3 thou/uL (1.40-6.50); %Basophils 0.4 % (0.0-1.0); %Eosinophils 2.2 % (0.0-10.0); %Lymphocytes 20.9 % (21.0-51.0); %Monocytes 5.6 % (0.0-10.0); %Neutrophils 70.9 % (42.0-75.0); Hypochromia MODERATE=16-30 cells (100X) (0-5/hpf); MDiff Complete? YES; Microcytosis MODERATE=15-30 cells (100X) (0-5/hpf); Platelet Morphology Comment Appears Adequate; Polychromasia SLIGHT = 2-3 cells (100X) (0-2/hpf)
[2018-06-17] MEDS ORDERED: Morphine 4 MG/ML VIAL ONE ×3 (02:15→09:39)
[2018-06-17 07:16] LABS: Hemoglobin 7.4 g/dL (12.0-16.0)
[2018-06-17] MEDS ORDERED: Senokot S 8.6-50 MG TAB PO PRN (07:22)
[2018-06-17] MEDS ORDERED: Ondansetron PF 4 MG/2 ML Vial IVP PRN (07:22)
[2018-06-17] MEDS ORDERED: Acetaminophen 325 MG TAB PO PRN (07:22)
[2018-06-17] MEDS ORDERED: Acetaminophen 650 MG Suppository PR PRN (07:22)
[2018-06-17] MEDS ORDERED: Pantoprazole 40 MG VIAL ONE (07:38)
--- NOTE | 2018-06-17 08:57 | CT ---
PRELIMINARY REPORT/[facility]/EMERGENTY AFTER-HOURS PROCEDURE CT Abdomen and Pelvis With Contrast EXAM DATE/TIME: 06/17/2018 1:25 AM CLINICAL HISTORY: 58 years old, female; Pain; Abdominal pain; Localized; Upper; Prior surgery; Patient HX: Er 2; PT sta joni that she has upper abdominal pain starting two days ago; Associated with nausea, associated with vomiting. Surgical history of cholecystectomy, section, hysterectomy, nephrectomy TECHNIQUE: Axial computed tomography images of the abdomen and pelvis with intravenous contrast. Coronal reforma tted images were created and reviewed. COMPARISON: No relevant prior studies available. FINDINGS: Lower thorax: Moderate hiatal hernia. ABDOMEN: Liver: Normal. No mass. Gallbladder and bile ducts: Prior cholecystectomy. No biliary ductal dilatation. Pancreas: Normal. No ductal dilation. Spleen: Normal. No splenomegaly. Adrenals: Normal. No mass. Kidneys and ureters: Normal. No hydronephrosis. Stomach and bowel: No bowel wall thickening or intestinal obstruction. Appendix: Prior appendectomy. PELVIS: Bladder: Unremarkable as visualized. Reproductive: Prior hysterectomy. ABDOMEN and PELVIS: Intraperitoneal space: Normal. No free air. No significant fluid collection. Bones/joints: No acute fracture. No dislocation. Soft tissues: Unremarkable. Vasculature: Normal. No abdominal aortic aneurysm. Lymph nodes: Normal. No enlarged lymph nodes. IMPRESSION: No acute findings. Thank you for allowing us to participate in the care of your patient. Dictated and Authenticated by: Roscoe Lantigua MD 06/17/2018 2:04 AM Central Time ([place] & [place]) FINAL REPORT CT ABDOMEN AND PELVIS: DATE: 06/17/2018. COMPARISON: 03/27/2017. HISTORY: Upper abdominal pain. FINDINGS: I agree with the preliminary [facility] report dictated by Dr. Roscoe Lantigua. The imaged lung bases are unremarkable with no free intraperitoneal air or fluid seen. The liver and spleen appear unremarkable. Cholecystectomy clips are present. The pancreas, adrenal glands, and kidneys are unremarkable. There is a moderate-sized fluid-filled hiatal hernia. There is fluid filling a moderately distended stomach. Limited assessment of the bowel without contrast media demonstrates no focal area of inflam matory change. No evidence for obstruction of the larger or small bowel seen. Appendix nonvisualize d. Question prior appendectomy. No lymphadenopathy is seen in the abdomen or pelvis. Osseous struc tures demonstrate no acute findings. Hiatal hernia mentioned above appears similar when compared to the 03/27/2017 examination. IMPRESSION: Stable moderate-sized hiatal hernia. No acute findings. POS: NUNO
[2018-06-17] MEDS: Pantoprazole 40 MG VIAL IVP SCH ×2 (09:07→20:48)
[2018-06-17] MEDS ORDERED: Acetaminophen/Codeine 30-300mg Tablet PO PRN (09:15)
[2018-06-17] MEDS ORDERED: traMADol HCl 50 MG TAB PO PRN ×2 (09:16→09:51)
[2018-06-17] MEDS ORDERED: ISOVUE-370 76%-LOCM 1 ML ONE (11:30)
[2018-06-17 13:16] VITALS: BMI 25.7
[2018-06-17] MEDS ORDERED: Iron Sucrose Complex 500 MG in Sodium Chloride 0.9% 250 ML 250 ML IVPB SCH (14:45)
--- NOTE | 2018-06-17 15:12 | CON ---
DATE OF CONSULTATION: HISTORY OF PRESENT ILLNESS: The patient is a 58-year-old female, who reports a long history of upper abdominal pain. This pain became progressively worse and she has sought treatment in the emergency room. The patient was noted to be severely anemic while in the emergency room. She denies any melena, hematochezia, any nausea or vomiting, or any weight loss. She described the pain as sharp and dull, it is nonradiating. No particular triggers are present. No alleviating factors are present. She does report maybe the pain may be worsened by eating pasta. The patient has had multiple evaluations in the past including multiple abdominal CTs, upper and lower endoscopy, among others. She denies being seen as an outpatient. She does report using Excedrin. She says she will take it every 4 hours during the day, but says she only uses it a few days a week. She did not have periods, as she has had a hysterectomy. PAST MEDICAL HISTORY: Significant for recurrent iron deficiency anemia and glaucoma. PAST SURGICAL HISTORY: Includes hysterectomy, , and endoscopies. ALLERGIES: NO KNOWN MEDICAL ALLERGIES. SOCIAL HISTORY: She does not smoke or drink. FAMILY HISTORY: Negative for GI or liver disease. REVIEW OF SYSTEMS: CONSTITUTIONAL: No fever or chills. No weight loss. EYES: No blurred vision or double vision. ENT: No sore throat or earaches. CARDIOVASCULAR: No chest pain or palpitations. PULMONARY: No shortness of breath, cough, or wheezing. GI: See above. : No hematuria or dysuria. MUSCULOSKELETAL: No joint pain or muscle weakness. SKIN: No rashes. NEUROLOGIC: No numbness or seizure activity. PHYSICAL EXAMINATION: GENERAL: Shows overweight female, in no acute distress. VITAL SIGNS: Temperature 97.4, pulse 83, respiratory rate 16, and blood pressure 162/77. HEENT: Unremarkable. NECK: Supple. CHEST: Clear. CARDIOVASCULAR: Regular rate and rhythm. ABDOMEN: Soft and protuberant. No rebound or guarding is present. Bowel sounds are present. RECTAL: Deferred. EXTREMITIES: Normal. NEUROLOGIC: Nonfocal. LABORATORY DATA: Shows a hemoglobin of 4.8, hematocrit is 17.2, and MCV is 64.9. Chemistries show glucose 139. Iron studies from January showed iron of 10, TIBC of 424, and ferritin of 8. Urinalysis is well. ASSESSMENT: 1. Severe recurrent iron deficiency anemia - the patient has had multiple endoscopic evaluations with no obvious is the etiology for her recurrent iron deficiency anemia. She has no overt gastrointestinal bleeding at this point, probably what she needs is a caps outpatient capsule endoscopy. 2. Upper abdominal pain-this may represent nonulcer dyspepsia or possibly dyspepsia related to her Excedrin use. Other possibilities include gastroesophageal reflux disease. RECOMMENDATIONS: 1. Begin a proton pump inhibitor. 2. Outpatient capsule endoscopy. 3. Hematology consult for possible IV iron infusion. 4. No endoscopy at this time. Job ID: [id number]
--- NOTE | 2018-06-17 15:56 | HP ---
PRIMARY CARE PROVIDER: Dr. Evens Munoz. CHIEF COMPLAINT: Abdominal pain. HISTORY OF PRESENT ILLNESS: Ms. Franks is a pleasant 58-year-old lady, who was seen at [facility] on June 17, 2018. She reports that she had endoscopic studies done in the past for abdominal pain and for anemia. Two days ago, she started having epigastric pain. She describes it as sharp, 10/10, nonradiating, constant, accompanied by nausea. She vomited three times. She denies any diarrhea. She denies any fevers or chills. She also reports lightheadedness over the last 2 days. She denies any chest pain. REVIEW OF SYSTEMS: All other systems reviewed and found to be negative. PAST MEDICAL HISTORY: Duodenal ulcer, gastric erosions, symptomatic anemia, and glaucoma. PAST SURGICAL HISTORY: Hysterectomy, oophorectomy, section, and EGD. ALLERGIES: NO KNOWN DRUG ALLERGIES. CURRENT MEDICATIONS: Lumigan eye drops one drop to each eye two times a day. SOCIAL HISTORY: The patient denies tobacco use, alcohol use, or recreational drug use. FAMILY HISTORY: She is adopted. She does not know her biological parents' history. PHYSICAL EXAMINATION: GENERAL: On examination, Ms. Franks is awake and alert, not in acute distress. VITAL SIGNS: Blood pressure is 121/64, pulse 78, respiratory rate 18, and oxygen saturation 98% on room air. She is afebrile. EYES: No scleral icterus. She has conjunctival pallor. ENT: Moist mucosal membranes. No oropharyngeal erythema or exudates. NECK: Supple, nontender, trachea is midline. RESPIRATORY: Accessory muscles of breathing are not active. Chest wall movements are symmetric bilaterally. Lungs are clear to auscultation without wheeze, rhonchi, or crepitations. CARDIOVASCULAR: S1 and S2 are heard, regular. Peripheral pulses are palpable. No carotid bruit. No pericardial rub. ABDOMEN: Soft. Mild epigastric tenderness. No guarding or rigidity. Bowel sounds are heard. No hepatomegaly. No splenomegaly. NEUROLOGIC: Cranial nerves 2 through 12 intact, deep tendon reflexes 2+. MUSCULOSKELETAL: Power is 5/5 in all four extremities. SKIN: No rashes or subcutaneous nodules. LYMPHATIC: No cervical lymphadenopathy. PSYCHIATRIC: Normal mood, normal affect, the patient is oriented to person, place, and time. LABORATORY DATA: Ms. Franks's labs and investigations were reviewed. She had CT scan of the abdomen and pelvis, which did not show any acute findings. She has microcytic anemia with hemoglobin 4.8, normal white count, normal platelet count, unremarkable comprehensive metabolic profile, and urinalysis that is positive for only small amount of leukocyte esterase. ASSESSMENT AND PLAN: Ms. Franks is a pleasant 58-year-old lady, who was seen at [facility] on June 17, 2018. Her problem list includes: 1. Symptomatic anemia: Ms. Franks is presenting with symptomatic anemia. She reports having multiple GI studies in the past. She will be admitted to the hospital for further management. She is receiving 2 units packed RBC transfusion. We will consult Gastroenterology Service for opinion and help with further management. 2. Abdominal pain: Etiology is unclear. We will trial PPI IV. 3. Glaucoma: We will continue eye drops. Many thanks for allowing me to participate in your patient's care. Please feel free to contact me with any questions or concerns. LEVEL OF RISK: Moderate. LEVEL OF COMPLEXITY: Moderate. Given the patient's symptomatic anemia with very low hemoglobin of 4.8, estimated length of stay is approximately 3 nights to account for investigations and management. Job ID: [id number]
[2018-06-17] MEDS: Acetaminophen/Codeine 30-300mg Tablet PO PRN (16:40)
[2018-06-17 17:39] LABS: Reticulocyte Count 3.5 % (0.5-1.5)
[2018-06-17 18:01] LABS: Iron 278 ug/dL (50-170); Iron Binding Capacity, Total 424 mcg/dL (265-497); LDH 193 U/L (125-220)
[2018-06-17 18:33] LABS: Folate (Folic Acid) 7.5 ng/mL (7.0-31.4)
[2018-06-17] MEDS: TRAVATAN Z 0.004% EA EYE SCH (20:50)
[2018-06-17] MEDS ORDERED: Latanoprost 0.005% Ophth Soln 2.5 ml Bottle EA EYE SCH (21:00)
[2018-06-17] MEDS: Morphine 4 MG/ML VIAL SLOW IVP PRN (22:48)
[2018-06-18 07:23] LABS: Anion Gap 11 mmol/L (10-20); BUN (Urea Nitrogen) 10 mg/dL (9.8-20.1); Calc. Creatinine Clearance 102 mL/min (70-130); Calcium 8.6 mg/dL (7.8-10.44); Carbon Dioxide 21 mmol/L (22-29); Chloride 107 mmol/L (98-107); Estimated GFR-MDRD Greater than 90; Glucose 102 mg/dL (70-105); Sodium 135 mmol/L (136-145)
[2018-06-18 07:43] LABS: #Eosinphils 0.3 thou/uL (0.0-0.7); #Lymphocytes 1.1 thou/uL (1.20-3.40); #Monocytes 0.4 thou/uL (0.11-0.59); #Neutrophils 3.7 thou/uL (1.40-6.50); %Basophils 0.3 % (0.0-1.0); %Eosinophils 6.1 % (0.0-10.0); %Lymphocytes 20.3 % (21.0-51.0); %Monocytes 6.6 % (0.0-10.0); %Neutrophils 66.8 % (42.0-75.0); Anisocytosis SLIGHT = 6-15 cells (100X) (0-5/hpf); Burr Cells SLIGHT = 2-5 cells (100X) (0-1/hpf); Hemoglobin 7.6 g/dL (12.0-16.0); Hypochromia MODERATE=16-30 cells (100X) (0-5/hpf); MDiff Complete? YES; Mean Corpuscular HGB CONC 29.2 g/dL (32.0-36.0); Mean Corpuscular Hemoglobin 21.3 pg (27.0-31.0); Mean Corpuscular Volume 72.9 fL (78.0-98.0); Mean Platelet Volume 11.1 fL (7.4-10.4); Microcytosis MODERATE=15-30 cells (100X) (0-5/hpf); Platelet Count 298 thou/uL (130-400); Platelet Morphology Comment Appears Adequate; Polychromasia SLIGHT = 2-3 cells (100X) (0-2/hpf); RBC Distribution Width 22.9 % (11.5-14.5); Red Blood Cell (RBC) Count 3.58 mill/uL (4.20-5.40); Tear Drops SLIGHT = 2-5 cells (100X) (0-1/hpf); White Blood Cell (WBC) Count 5.5 thou/uL (4.8-10.8)
[2018-06-18] MEDS: Pantoprazole 40 MG VIAL IVP SCH ×2 (08:01→19:33)
[2018-06-18] MEDS: Olopatadine Hcl [Pazeo] 1 DROP EA EYE SCH (08:01)
--- NOTE | 2018-06-18 13:43 | PDOC.PN ---
- Subjective Encounter Start Date: 06/18/18 Encounter Start Time: 10:20 Pt seen for followup re: symptomatic anemia. Feels slightly better. Still has abdo pain. - Objective MAR Reviewed: Yes Vital Signs & Weight: Vital Signs (12 hours) Temp Pulse Resp BP Pulse Ox 06/18/18 11:55 97.9 F 77 16 124/62 06/18/18 08:09 98.1 F 74 16 115/92 H 95 06/18/18 08:01 95 06/18/18 05:09 97.7 F 78 16 112/68 93 L Weight Weight 150 lb I&O: 06/17/18 06/18/18 06/19/18 06:59 06:59 06:59 Intake Total 465 Balance 465 Result Diagrams: 06/18/18 06:38 06/18/18 06:38 Additional Labs: labs reviewed by me Phys Exam - Physical Examination Constitutional: NAD HEENT: moist MMs, sclera anicteric, oral pharynx no lesions, 2+ tonsils Neck: no nodes, no JVD, supple, full ROM Respiratory: clear to auscultation bilateral Cardiovascular: RRR, no rub S1, S2 Gastrointestinal: soft, no distention, positive bowel sounds Mild epigastric tenderness, no guarding or rigidity Neurological: moves all 4 limbs Psychiatric: normal affect, A&O x 3 Dx/Plan (1) Symptomatic anemia Code(s): D64.9 - ANEMIA, UNSPECIFIED Status: Acute Comment: hamoglobin stable; s/p pRBC transfusion. (2) Abdominal pain Code(s): R10.9 - UNSPECIFIED ABDOMINAL PAIN Status: Chronic Qualifiers: Abdominal location: generalized Qualified Code(s): R10.84 - Generalized abdominal pain Comment: trial GI cocktail (3) Glaucoma Code(s): H40.9 - UNSPECIFIED GLAUCOMA Status: Chronic Comment: continue eye drops. - Plan * . Review of Systems - Review of Systems Constitutional: negative: fever, chills, sweats, weakness, malaise Cardiovascular: negative: chest pain, palpitations, orthopnea, paroxysmal nocturnal dyspnea, edema, light headedness Gastrointestinal: Nausea, Abdominal Pain. negative: Vomiting, Diarrhea, Constipation, Melena, Hematochezia Genitourinary: negative: Dysuria, Frequency, Incontinence, Hematuria, Retention Musculoskeletal: negative: Neck Pain, Shoulder Pain, Arm Pain, Back Pain, Hand Pain, Leg Pain, Foot Pain Skin: negative: Rash, Lesions, Pedro, Bruising - Medications/Allergies Allergies/Adverse Reactions: Allergies Allergy/AdvReac Type Severity Reaction Status Date / Time No Known Drug Allergies Allergy Verified 01/23/17 17:08 Medications: Current Medications Acetaminophen (Tylenol) 650 mg PO Q4H PRN PRN Reason: Headache/Fever/Mild Pain (1-3) Acetaminophen (Tylenol) 650 mg [place] Q4H PRN PRN Reason: Headache/Fever/Mild Pain (1-3) Acetaminophen/Codeine Phosphate (Tylenol #3) 1 tab PO Q6H PRN PRN Reason: Severe Pain (7-10) Last Admin: 06/17/18 16:40 Dose: 1 tab Lidocaine HCl 10 ml/ Al (Hydroxide/Mg Hydroxide 30 ml) 0 ml SSW ONE BURKE Stop: 06/18/18 15:00 Morphine Sulfate (Morphine) 2 mg SLOW IVP Q6H PRN PRN Reason: Pain Last Admin: 06/17/18 22:48 Dose: 2 mg Ondansetron HCl (Zofran) 4 mg IVP Q6H PRN PRN Reason: Nausea/Vomiting Last Admin: 06/18/18 07:20 Dose: 4 mg Pantoprazole Sodium (Protonix) 40 mg IVP Q12HR BURKE Last Admin: 06/18/18 08:01 Dose: 40 mg Olopatadine Hcl [ (Pazeo] 1 Drop) 0 each EA EYE DAILY BURKE Last Admin: 06/18/18 08:01 Dose: 1 each Travatan Z ( (Travoprost) 0.004%) 0 each EA EYE HS BURKE Last Admin: 06/17/18 20:50 Dose: 1 each Senna/Docusate Sodium (Senokot S) 2 tab PO BID PRN PRN Reason: Constipation Tramadol HCl (Ultram) 50 mg PO Q6H PRN PRN Reason: Moderate Pain (4-6) Last Admin: 06/17/18 20:49 Dose: 50 mg
--- NOTE | 2018-06-18 15:11 | PRG ---
DATE OF SERVICE: 06/18/2018 SUBJECTIVE: The patient is continuing to complain of abdominal pain. She has had no bowel movements. She reports she is nauseated, but no vomiting. She did receive her IV iron yesterday. OBJECTIVE: VITAL SIGNS: Temperature 97.9, pulse 77, respiratory rate 16, and blood pressure 124/62. HEENT: Unremarkable. CHEST: Clear. CARDIOVASCULAR: Regular rate and rhythm. ABDOMEN: Soft, nontender without organomegaly or masses. Bowel sounds present, normoactive. EXTREMITIES: Normal. NEUROLOGIC: Nonfocal. LABORATORY DATA: Hemoglobin of 7.6. ASSESSMENT: 1. Severe iron deficiency anemia, recurrent. 2. Upper abdominal pain. RECOMMENDATIONS: 1. Continue proton pump inhibitor. 2. Outpatient capsule endoscopy. 3. The patient has had her IV iron infusion, therefore, her H and H should improve. Job ID: [id number]
[2018-06-18] MEDS: Lidocaine 2% Viscous Solution 10 ML, Aluminum & Magnesium Hydroxide 30 ML SSW SCH ×2 (15:16→15:17)
[2018-06-18] MEDS: Morphine 4 MG/ML VIAL SLOW IVP PRN (19:33)
[2018-06-18] MEDS: TRAVATAN Z 0.004% EA EYE SCH (21:12)
[2018-06-18] MEDS: Acetaminophen/Codeine 30-300mg Tablet PO PRN (22:57)
[2018-06-19 07:08] LABS: Anion Gap 10 mmol/L (10-20); BUN (Urea Nitrogen) 9 mg/dL (9.8-20.1); Calc. Creatinine Clearance 93 mL/min (70-130); Calcium 8.5 mg/dL (7.8-10.44); Carbon Dioxide 26 mmol/L (22-29); Chloride 106 mmol/L (98-107); Estimated GFR-MDRD 86; Glucose 104 mg/dL (70-105); Potassium 3.9 mmol/L (3.5-5.1); Sodium 138 mmol/L (136-145)
[2018-06-19] MEDS: Pantoprazole 40 MG VIAL IVP SCH ×2 (07:30→21:04)
[2018-06-19] MEDS: Morphine 4 MG/ML VIAL SLOW IVP PRN (07:30)
[2018-06-19] MEDS: Olopatadine Hcl [Pazeo] 1 DROP EA EYE SCH (07:31)
[2018-06-19 07:45] LABS: #Eosinphils 0.4 thou/uL (0.0-0.7); #Lymphocytes 1.2 thou/uL (1.20-3.40); #Monocytes 0.6 thou/uL (0.11-0.59); #Neutrophils 8.5 thou/uL (1.40-6.50); %Basophils 0.2 % (0.0-1.0); %Eosinophils 3.8 % (0.0-10.0); %Lymphocytes 11.3 % (21.0-51.0); %Monocytes 5.9 % (0.0-10.0); %Neutrophils 78.9 % (42.0-75.0); Hemoglobin 7.6 g/dL (12.0-16.0); MDiff Complete? YES; Mean Corpuscular HGB CONC 29.2 g/dL (32.0-36.0); Mean Corpuscular Hemoglobin 21.6 pg (27.0-31.0); Mean Corpuscular Volume 74.1 fL (78.0-98.0); Platelet Count 309 thou/uL (130-400); RBC Distribution Width 23.7 % (11.5-14.5); Red Blood Cell (RBC) Count 3.51 mill/uL (4.20-5.40); White Blood Cell (WBC) Count 10.8 thou/uL (4.8-10.8)
[2018-06-19 07:46] LABS: Anisocytosis MODERATE=16-30 cells (100X) (0-5/hpf); Hypochromia MODERATE=16-30 cells (100X) (0-5/hpf); Polychromasia MODERATE = 3-4 cells (100X) (0-2/hpf)
[2018-06-19 15:04] LABS: ALT (SGPT) 173 U/L (8-55); AST (SGOT) 137 U/L (5-34); Albumin 3.5 g/dL (3.5-5.0); Alkaline Phosphatase 193 U/L (40-150); Bilirubin, Direct 0.6 mg/dL (0.1-0.3); Bilirubin, Total 0.8 mg/dL (0.2-1.2); Lipase 27 U/L (8-78); Protein, Total 6.1 g/dL (6.0-8.3)
--- NOTE | 2018-06-19 15:20 | ULT ---
ABDOMINAL ULTRASOUND: DATE: 06/19/2018. History Abdominal pain. COMPARISON: CT abdomen on 06/17/2018. FINDINGS: The spleen is mildly enlarged measuring 14.1 cm in craniocaudal dimensions. The gallbladder is not visualized and as noted on prior CT scan examination secondary to patient's hi story of prior cholecystectomy. The common duct measures 0.75 cm in diameter, which is within normal limits for post cholecystectomy changes. The visualized portions of the IVC, visualized portions of the abdominal aorta, limited visualized po rtions of the pancreas, liver, and bilateral kidneys demonstrate a normal sonographic appearance. Th e right kidney measures 9.5 cm in length with the left kidney measuring 10.9 cm in length. IMPRESSION: 1. Mild splenomegaly. 2. Post cholecystectomy. POS: ELISHA
--- NOTE | 2018-06-19 16:09 | PDOC.PN ---
- Subjective Encounter Start Date: 06/19/18 Encounter Start Time: 10:20 Pt seen for followup re: abdo pain. Reports ongoing pain. No fevers or chills. - Objective MAR Reviewed: Yes Vital Signs & Weight: Vital Signs (12 hours) Temp Pulse Resp BP Pulse Ox 06/19/18 08:02 93 L 06/19/18 08:00 98.0 F 84 18 126/73 93 L Weight Weight 150 lb I&O: 06/18/18 06/19/18 06/20/18 06:59 06:59 06:59 Intake Total 465 400 Balance 465 400 Result Diagrams: 06/20/18 06:36 06/20/18 06:36 Additional Labs: labs reviewed by me Phys Exam - Physical Examination Constitutional: NAD HEENT: moist MMs Neck: supple Respiratory: clear to auscultation bilateral Cardiovascular: RRR Gastrointestinal: soft Mild RUQ tenderness, no guarding or rigidity Neurological: moves all 4 limbs Psychiatric: normal affect Dx/Plan (1) Abdominal pain Code(s): R10.9 - UNSPECIFIED ABDOMINAL PAIN Status: Chronic Qualifiers: Abdominal location: generalized Qualified Code(s): R10.84 - Generalized abdominal pain Comment: Etiology unclear, abdo US unremarkable. However, LFTs abnormal, ? passed biliary stone. Trial lidoderm patch. (2) Symptomatic anemia Code(s): D64.9 - ANEMIA, UNSPECIFIED Status: Acute Comment: stable, s/p pRBC transfusion. (3) Abnormal LFTs Code(s): R94.5 - ABNORMAL RESULTS OF LIVER FUNCTION STUDIES Status: Acute Comment: follow LFTs. Abdo US was unremarkable. (4) Glaucoma Code(s): H40.9 - UNSPECIFIED GLAUCOMA Status: Chronic Comment: on eye drops. - Plan * . Review of Systems - Review of Systems Cardiovascular: negative: chest pain, palpitations, orthopnea, paroxysmal nocturnal dyspnea, edema, light headedness Gastrointestinal: Abdominal Pain. negative: Nausea, Vomiting, Diarrhea, Constipation, Melena, Hematochezia - Medications/Allergies Allergies/Adverse Reactions: Allergies Allergy/AdvReac Type Severity Reaction Status Date / Time No Known Drug Allergies Allergy Verified 01/23/17 17:08 Medications: Current Medications Acetaminophen (Tylenol) 650 mg PO Q4H PRN PRN Reason: Headache/Fever/Mild Pain (1-3) Acetaminophen (Tylenol) 650 mg [place] Q4H PRN PRN Reason: Headache/Fever/Mild Pain (1-3) Acetaminophen/Codeine Phosphate (Tylenol #3) 1 tab PO Q6H PRN PRN Reason: Severe Pain (7-10) Last Admin: 06/18/18 22:57 Dose: 1 tab Lidocaine (Lidoderm 5% Patch) 1 patch TD Q24H BURKE Morphine Sulfate (Morphine) 2 mg SLOW IVP Q6H PRN PRN Reason: Pain Last Admin: 06/19/18 07:30 Dose: 2 mg Ondansetron HCl (Zofran) 4 mg IVP Q6H PRN PRN Reason: Nausea/Vomiting Last Admin: 06/18/18 07:20 Dose: 4 mg Pantoprazole Sodium (Protonix) 40 mg IVP Q12HR BURKE Last Admin: 06/19/18 07:30 Dose: 40 mg Olopatadine Hcl [ (Pazeo] 1 Drop) 0 each EA EYE DAILY BURKE Last Admin: 06/19/18 07:31 Dose: 1 each Travatan Z ( (Travoprost) 0.004%) 0 each EA EYE HS BURKE Last Admin: 06/18/18 21:12 Dose: 1 each Senna/Docusate Sodium (Senokot S) 2 tab PO BID PRN PRN Reason: Constipation Tramadol HCl (Ultram) 50 mg PO Q6H PRN PRN Reason: Moderate Pain (4-6) Last Admin: 06/17/18 20:49 Dose: 50 mg
[2018-06-19] MEDS ORDERED: Lidocaine 5% Patch TD SCH (18:00)
[2018-06-19 19:30] LABS: HBCM Index 0.05 S/CO (0-0.79); HBSAB Concentration 2.14 mIU/mL; HBSAg Index 0.16 S/CO (0-0.99); Hep B Core Total Ab Non-Reactive (NonReactive); Hep B Core Total Index 0.07 S/CO (0-0.79); Hep B Surf AB Non-Reactive (NonReactive); Hep B Surf Ag Non-Reactive S/CO (NonReactive); Hep C IgG Ab Non-Reactive (NonReactive); Hep C Index 0.05 S/CO (0-0.79); Hepatitis B Core IgM Abs Non-Reactive (NonReactive)
[2018-06-19] MEDS: TRAVATAN Z 0.004% EA EYE SCH (21:05)
--- NOTE | 2018-06-20 00:27 | PRG ---
DATE OF SERVICE: 06/19/2018 SUBJECTIVE: Ms. Franks still complains of some vague upper abdominal pain. She has had no nausea or vomiting. She had a black stool this morning. She ate 100% of her regular diet this evening. OBJECTIVE: VITAL SIGNS: Temperature 98.0, pulse 84, and blood pressure 126/73. GENERAL: She is in no acute distress. She is alert and oriented x3. LUNGS: Clear to auscultation bilaterally. HEART: Regular rate and rhythm without murmur. ABDOMEN: Soft. She does report some upper abdominal tenderness; however, there is no guarding. Her bowel sounds are present. EXTREMITIES: No lower extremity edema. LABORATORY DATA: Her white blood cell count is 10.8, hemoglobin 7.6, and platelets 309. Creatinine 0.7. Bilirubin is 0.8, AST 137, ALT 173, and alkaline phosphatase 193. IMPRESSION: 1. Severe iron deficiency anemia. She has received 2 units transfusion and her hemoglobin is stable at 7.6. The source for her iron-deficiency anemia is not clear. She is Hemoccult negative on multiple stool studies. She had upper endoscopy in November, which was negative. She had upper endoscopy a year before that showed some erosions in the duodenum and stomach. Biopsies were negative for celiac disease. She has been scheduled for capsule endoscopy multiple times to the office, however, she canceled these appointments. Most recently canceled reportedly due to having gotten sick from her grandkids. That was last scheduled in 02/2018. She stated that she would call back when she was ready to reschedule. CT scan of the abdomen and pelvis showed no evidence of mass lesion. Small-bowel tumor or carcinoid would be a consideration. 2. Abnormal liver function test. Her transaminases and alkaline phosphatase are elevated. Again, the source of this is not determined at this point. 3. Upper abdominal pain. She is tolerating 100% of her regular diet. There is no focal tenderness. CT scan and ultrasound did not show source for the pain. RECOMMENDATIONS: 1. Check viral hepatitis panel. 2. She might need IV iron as an outpatient through Hematology. She can start oral iron in the meantime. 3. She is encouraged to follow back up as an outpatient and reschedule her capsule endoscopy. This has to be done as an outpatient. 4. Follow trend of the liver tests. Job ID: [id number]
[2018-06-20] MEDS ORDERED: Lidocaine Patch Removal 1 EACH TOP SCH (06:00)
[2018-06-20 06:57] LABS: Hemoglobin 8.1 g/dL (12.0-16.0); Mean Corpuscular HGB CONC 29.6 g/dL (32.0-36.0); Mean Corpuscular Hemoglobin 22.3 pg (27.0-31.0); Mean Corpuscular Volume 75.5 fL (78.0-98.0); Mean Platelet Volume 11.1 fL (7.4-10.4); Platelet Count 314 thou/uL (130-400); RBC Distribution Width 25.7 % (11.5-14.5)
[2018-06-20 07:00] LABS: #Eosinphils 0.4 thou/uL (0.0-0.7); #Lymphocytes 1.8 thou/uL (1.20-3.40); #Monocytes 0.7 thou/uL (0.11-0.59); #Neutrophils 7.1 thou/uL (1.40-6.50); %Basophils 0.1 % (0.0-1.0); %Eosinophils 3.5 % (0.0-10.0); %Lymphocytes 18.1 % (21.0-51.0); %Monocytes 6.9 % (0.0-10.0); %Neutrophils 71.4 % (42.0-75.0)
[2018-06-20 07:07] LABS: ALT (SGPT) 116 U/L (8-55); AST (SGOT) 50 U/L (5-34); Albumin 3.5 g/dL (3.5-5.0); Alkaline Phosphatase 189 U/L (40-150); Anion Gap 12 mmol/L (10-20); BUN (Urea Nitrogen) 6 mg/dL (9.8-20.1); Bilirubin, Total 0.5 mg/dL (0.2-1.2); Calc. Creatinine Clearance 97 mL/min (70-130); Calcium 8.5 mg/dL (7.8-10.44); Carbon Dioxide 23 mmol/L (22-29); Chloride 105 mmol/L (98-107); Estimated GFR-MDRD 90; Globulin 2.9 g/dL (2.4-3.5); Glucose 106 mg/dL (70-105); Potassium 3.7 mmol/L (3.5-5.1); Protein, Total 6.4 g/dL (6.0-8.3); Sodium 136 mmol/L (136-145)
[2018-06-20 07:22] LABS: Anisocytosis MARKED = >30 cells (100X) (0-5/hpf); MDiff Complete? YES; Platelet Morphology Comment Appears Adequate; Polychromasia MARKED = >4 cells (100X) (0-2/hpf); Stomatocytes SLIGHT = 2-5 cells (100X) (0-1/hpf)
[2018-06-20] MEDS: Pantoprazole 40 MG VIAL IVP SCH ×2 (09:02→20:34)
[2018-06-20] MEDS: Olopatadine Hcl [Pazeo] 1 DROP EA EYE SCH (09:06)
[2018-06-20] MEDS ORDERED: Bisacodyl 5 MG TAB PO PRN (09:37)
[2018-06-20] MEDS ORDERED: Bisacodyl 5 MG TAB PO SCH (09:45)
[2018-06-20] MEDS: Lidocaine 5% Patch TD SCH (11:06)
--- NOTE | 2018-06-20 13:19 | PDOC.PN ---
- Subjective Encounter Start Date: 06/20/18 Encounter Start Time: 09:40 Pt seen for followup re: abdo pain. Rates pain 03/15. Had a small BM yesterday. - Objective MAR Reviewed: Yes Vital Signs & Weight: Vital Signs (12 hours) Temp Pulse Resp BP Pulse Ox 06/20/18 11:41 98.0 F 84 18 115/71 93 L 06/20/18 08:00 98.0 F 84 18 124/58 L 94 L Weight Weight 150 lb I&O: 06/19/18 06/20/18 06/21/18 06:59 06:59 06:59 Intake Total 400 740 Balance 400 740 Result Diagrams: 06/20/18 06:36 06/20/18 06:36 Additional Labs: labs reviewed by me Phys Exam - Physical Examination Constitutional: NAD HEENT: moist MMs Neck: supple Respiratory: clear to auscultation bilateral Cardiovascular: RRR Gastrointestinal: soft, non-tender, positive bowel sounds distention Neurological: moves all 4 limbs Psychiatric: normal affect Dx/Plan (1) Abdominal pain Code(s): R10.9 - UNSPECIFIED ABDOMINAL PAIN Status: Chronic Qualifiers: Abdominal location: generalized Qualified Code(s): R10.84 - Generalized abdominal pain Comment: Pt reports improvement with lidoderm patch, start two patches (2) Symptomatic anemia Code(s): D64.9 - ANEMIA, UNSPECIFIED Status: Acute Comment: stable (3) Abnormal LFTs Code(s): R94.5 - ABNORMAL RESULTS OF LIVER FUNCTION STUDIES Status: Acute Comment: LFTs improving (4) Glaucoma Code(s): H40.9 - UNSPECIFIED GLAUCOMA Status: Chronic Comment: will continue eye drops. - Plan * . Review of Systems - Review of Systems Cardiovascular: negative: chest pain, palpitations, orthopnea, paroxysmal nocturnal dyspnea, edema, light headedness Gastrointestinal: Nausea, Abdominal Pain. negative: Vomiting, Diarrhea, Constipation, Melena, Hematochezia - Medications/Allergies Allergies/Adverse Reactions: Allergies Allergy/AdvReac Type Severity Reaction Status Date / Time No Known Drug Allergies Allergy Verified 01/23/17 17:08 Medications: Current Medications Acetaminophen (Tylenol) 650 mg PO Q4H PRN PRN Reason: Headache/Fever/Mild Pain (1-3) Acetaminophen (Tylenol) 650 mg [place] Q4H PRN PRN Reason: Headache/Fever/Mild Pain (1-3) Acetaminophen/Codeine Phosphate (Tylenol #3) 1 tab PO Q6H PRN PRN Reason: Severe Pain (7-10) Last Admin: 06/18/18 22:57 Dose: 1 tab Bisacodyl (Dulcolax) 10 mg PO DAILYPRN PRN PRN Reason: Constipation Lidocaine (Lidoderm 5% Patch) 2 patch TD 1000 BURKE Last Admin: 06/20/18 11:06 Dose: 2 patch Miscellaneous Medication (Lidocaine Patch Removal) 2 each TOP 2200 BURKE Morphine Sulfate (Morphine) 2 mg SLOW IVP Q6H PRN PRN Reason: Pain Last Admin: 06/19/18 07:30 Dose: 2 mg Ondansetron HCl (Zofran) 4 mg IVP Q6H PRN PRN Reason: Nausea/Vomiting Last Admin: 06/18/18 07:20 Dose: 4 mg Pantoprazole Sodium (Protonix) 40 mg IVP Q12HR BURKE Last Admin: 06/20/18 09:02 Dose: 40 mg Olopatadine Hcl [ (Pazeo] 1 Drop) 0 each EA EYE DAILY BURKE Last Admin: 06/20/18 09:06 Dose: 1 each Travatan Z ( (Travoprost) 0.004%) 0 each EA EYE HS BURKE Last Admin: 06/19/18 21:05 Dose: 1 each Senna/Docusate Sodium (Senokot S) 2 tab PO BID PRN PRN Reason: Constipation Tramadol HCl (Ultram) 50 mg PO Q6H PRN PRN Reason: Moderate Pain (4-6) Last Admin: 06/17/18 20:49 Dose: 50 mg
--- NOTE | 2018-06-20 20:20 | PRG ---
DATE OF SERVICE: 06/20/2018 SUBJECTIVE: Ms. Franks has had ongoing epigastric pain, which she describes as severe. She has had nausea most of the day. She is tolerating an oral diet so far. She has had no fever. She had a bowel movement yesterday morning, but feeling constipated now. She reports she was having regular bowel movements prior to admission. OBJECTIVE: VITAL SIGNS: Temperature 98.0, pulse 85, blood pressure 128/75. GENERAL: She is in no acute distress. Alert and oriented x3. HEENT: Eyes have no scleral icterus. Oropharynx is clear without lesions. NECK: No cervical or supraclavicular lymphadenopathy. LUNGS: Clear to auscultation bilaterally. HEART: Regular rate and rhythm with a 2/6 systolic murmur at the right upper sternal border. ABDOMEN: Tender in the epigastric region without guarding. Bowel sounds are present. EXTREMITIES: No lower extremity edema. She has some swelling in her right arm with some erythema around her IV site. LABORATORY DATA: White blood cell count 10.0, hemoglobin 8.1, platelets 314. Bilirubin is 0.5, AST 50, ALT 116, alkaline phosphatase 189. IMPRESSION: 1. Epigastric abdominal pain. She has had prior constipation and this could be functional related to constipation predominant irritable bowel syndrome. However, she reports that her bowel movements have been normal lately. Given the severe iron deficiency anemia of undetermined etiology, along with the abdominal pain, there is concern for small-bowel lesion or carcinoid that could be causing her current presentation. She was previously scheduled for capsule endoscopy, but did not follow through with having the procedure performed. She now presents again with severe iron-deficiency anemia. Previously, upper and lower endoscopy were negative for bleeding source. Given her ongoing symptoms, we will plan to evaluate with push enteroscopy. If this is negative, then she will need to follow through with capsule endoscopy as an outpatient. Also in light of the new finding of the elevated liver tests with elevated transaminases and alkaline phosphatase and mildly dilated bile duct by ultrasound, we will follow through with MRCP. 2. Abnormal liver tests. Her viral hepatitis screen is negative. Could be related to fatty liver disease. However, liver tests were normal previously. She could have medication side effect. Additional lab work will be sent for smooth muscle antibody, mitochondrial antibody, and alpha-1 antitrypsin level. 3. Severe iron-deficiency anemia requiring transfusion. Again, upper and lower endoscopy in the past did show erosions in the duodenum and stomach. Followup upper endoscopy showed these to have healed. We will plan push enteroscopy now. RECOMMENDATIONS: 1. MRCP tomorrow morning. 2. Push enteroscopy later tomorrow morning or early afternoon. 3. If the MRCP and push enteroscopy are negative, then she should be discharged home and she can follow up in the office for outpatient capsule endoscopy. Job ID: [id number]
[2018-06-20] MEDS: TRAVATAN Z 0.004% EA EYE SCH (20:34)
[2018-06-20] MEDS: Lidocaine Patch Removal 1 EACH TOP SCH (20:35)
[2018-06-21 07:34] LABS: ALT (SGPT) 76 U/L (8-55); AST (SGOT) 27 U/L (5-34); Albumin 3.3 g/dL (3.5-5.0); Alkaline Phosphatase 156 U/L (40-150); Anion Gap 12 mmol/L (10-20); BUN (Urea Nitrogen) 8 mg/dL (9.8-20.1); Bilirubin, Total 0.4 mg/dL (0.2-1.2); Calc. Creatinine Clearance 92 mL/min (70-130); Calcium 8.7 mg/dL (7.8-10.44); Carbon Dioxide 22 mmol/L (22-29); Chloride 109 mmol/L (98-107); Estimated GFR-MDRD 84; Glucose 103 mg/dL (70-105); Protein, Total 6.3 g/dL (6.0-8.3); Sodium 139 mmol/L (136-145)
[2018-06-21 07:38] LABS: Hepatitis A IgM ABS Negative (Negative); Hepatitis A Total ABS Negative (Negative)
--- NOTE | 2018-06-21 11:46 | MRI ---
MRI ABDOMEN WITHOUT CONTRAST MRCP: Comparison: Abdominal ultrasound 06-19-11. CT abdomen/pelvis 06-17-18. Technique: Multiplanar, multisequence MRI images were obtained of the abdomen without contrast. MRCP images were performed. FINDINGS: The gallbladder has been removed. The common bile duct is upper limits of normal in size measuring ap proximately 7 mm. No intrahepatic biliary dilatation is seen. The liver, kidneys, adrenal glands, spleen, and pancreas are unremarkable. No abdominal adenopathy is seen. No marrow signal abnormality is present. IMPRESSION: Status post cholecystectomy without evidence of biliary dilatation. POS: TPC
[2018-06-21] MEDS: Lidocaine 5% Patch TD SCH (12:32)
[2018-06-21] MEDS: Pantoprazole 40 MG VIAL IVP SCH (12:32)
[2018-06-21] MEDS: Olopatadine Hcl [Pazeo] 1 DROP EA EYE SCH ×2 (12:32→19:50)
[2018-06-21] MEDS ORDERED: Metoclopramide HCl 10 MG/2 ML VIAL ONE (15:27)
[2018-06-21] MEDS ORDERED: PROPOFOL 200 MG/20 ML VIAL ONE (15:27)
[2018-06-21] MEDS ORDERED: Ondansetron PF 4 MG/2 ML Vial ONE (15:27)
[2018-06-21] MEDS ORDERED: Lidocaine 1% PF 5 ML VIAL ONE (15:27)
[2018-06-21] MEDS ORDERED: Succinylcholine Chloride 20 MG/ML 10 ml SYRINGE FS ONE (15:27)
[2018-06-21] MEDS ORDERED: Dexamethasone 20 MG/5 ML VIAL ONE (15:27)
--- NOTE | 2018-06-21 16:57 | OP ---
DATE OF PROCEDURE: 06/21/2018 GI ENDOSCOPY NOTE WARRANT CLERK SURGEON: None. PROCEDURE PERFORMED: Esophagogastroduodenoscopy with small-bowel push enteroscopy. INDICATIONS: 1. Iron-deficiency anemia, with prior negative EGD and colonoscopy. 2. Epigastric pain. MEDICATIONS: See Anesthesia record. FINDINGS: After discussion of the risks, benefits, and alternatives of the procedure, informed consent was obtained and witnessed. Pre-endoscopic cardiopulmonary examination was satisfactory. Time-out was performed before sedation was achieved. Sedation was achieved with Anesthesia assistance in the endoscopy unit. A Pentax adult colonoscope was inserted into the oropharynx and passed through the cricopharyngeus under direct visualization. The esophageal mucosa appeared normal throughout with a normal-appearing Z-line. The endoscope was advanced into the stomach. Forward and retroflexed views of the entire gastric mucosa were obtained. In the gastric fundus, there were two small shallow ulcerations. Both are clean based with no stigmata of recent bleeding. There was some diffuse patchy erythema throughout the gastric body. I obtained biopsies from the gastric antrum, body, and fundus to rule out H. pylori infection. The endoscope was passed through the pylorus and advanced in the usual fashion into the small bowel to a distance of 160 cm, which was the extent of the length of the scope. I estimate that this was in the proximal to mid jejunum. The small bowel mucosa appeared completely normal to the extent visualized. There was no evidence of any mass, lesions, old blood, active bleeding or bleeding lesions or other mucosal abnormalities on my examination of this proximal small bowel. The colonoscope was then completely withdrawn, and the patient allowed to recover. The patient tolerated the procedure well. There were no immediate postprocedure complications. IMPRESSION: 1. Two shallow clean based ulcers in the gastric fundus, nonbleeding. 2. Patchy gastritis, biopsied to rule out Helicobacter pylori. 3. Small hiatal hernia. 4. Normal esophagus. 5. Normal proximal small bowel to 160 cm, examined. RECOMMENDATIONS: 1. I would have her on a twice daily oral proton pump inhibitor. 2. Avoid all nonsteroidal anti-inflammatory drugs. 3. Advance diet. 4. The patient will follow up in the GI Clinic with Dr. Moore. [place] for hospital discharge from a GI perspective. Job ID: [id number]
--- NOTE | 2018-06-21 17:02 | PDOC.PN ---
- Subjective Encounter Start Date: 06/21/18 Encounter Start Time: 16:00 Pt seen for followup re; gastric ulcers. Feels better. - Objective MAR Reviewed: Yes Vital Signs & Weight: Vital Signs (12 hours) Temp Pulse Resp BP Pulse Ox 06/21/18 16:37 98.0 F 101 H 16 127/64 96 06/21/18 08:00 94 L 06/21/18 07:54 98.1 F 84 18 147/79 H 94 L Weight Weight 150 lb I&O: 06/20/18 06/21/18 06/22/18 06:59 06:59 06:59 Intake Total 740 1000 Balance 740 1000 Result Diagrams: 06/20/18 06:36 06/21/18 06:39 Additional Labs: labs reviewed by me Phys Exam - Physical Examination Constitutional: NAD HEENT: moist MMs Respiratory: clear to auscultation bilateral Cardiovascular: RRR Gastrointestinal: soft Neurological: moves all 4 limbs Psychiatric: normal affect Dx/Plan (1) Gastric ulcer Code(s): K25.9 - GASTRIC ULCER, UNSP ACUTE OR CHRONIC, W/O HEMOR OR PERF Status: Acute Comment: s/p EGD. Start BID PPI. (2) Abdominal pain Code(s): R10.9 - UNSPECIFIED ABDOMINAL PAIN Status: Acute Qualifiers: Abdominal location: generalized Qualified Code(s): R10.84 - Generalized abdominal pain Comment: Improved, likely due to gastric ulcers (3) Symptomatic anemia Code(s): D64.9 - ANEMIA, UNSPECIFIED Status: Acute Comment: stable (4) Abnormal LFTs Code(s): R94.5 - ABNORMAL RESULTS OF LIVER FUNCTION STUDIES Status: Acute Comment: LFTs improved (5) Glaucoma Code(s): H40.9 - UNSPECIFIED GLAUCOMA Status: Chronic Comment: continue eye drops. - Plan * . Review of Systems - Review of Systems Cardiovascular: negative: chest pain, palpitations, orthopnea, paroxysmal nocturnal dyspnea, edema, light headedness Gastrointestinal: Abdominal Pain. negative: Nausea, Vomiting, Diarrhea, Constipation, Melena, Hematochezia - Medications/Allergies Allergies/Adverse Reactions: Allergies Allergy/AdvReac Type Severity Reaction Status Date / Time No Known Drug Allergies Allergy Verified 01/23/17 17:08 Medications: Current Medications Acetaminophen (Tylenol) 650 mg PO Q4H PRN PRN Reason: Headache/Fever/Mild Pain (1-3) Acetaminophen (Tylenol) 650 mg TX Q4H PRN PRN Reason: Headache/Fever/Mild Pain (1-3) Acetaminophen/Codeine Phosphate (Tylenol #3) 1 tab PO Q6H PRN PRN Reason: Severe Pain (7-10) Last Admin: 06/18/18 22:57 Dose: 1 tab Bisacodyl (Dulcolax) 10 mg PO DAILYPRN PRN PRN Reason: Constipation Lidocaine (Lidoderm 5% Patch) 2 patch TD 1000 [facility] Last Admin: 06/21/18 12:32 Dose: 2 patch Miscellaneous Medication (Lidocaine Patch Removal) 2 each TOP 2200 [facility] Last Admin: 06/20/18 20:35 Dose: 2 each Morphine Sulfate (Morphine) 2 mg SLOW IVP Q6H PRN PRN Reason: Pain Last Admin: 06/19/18 07:30 Dose: 2 mg Ondansetron HCl (Zofran) 4 mg IVP Q6H PRN PRN Reason: Nausea/Vomiting Last Admin: 06/18/18 07:20 Dose: 4 mg Pantoprazole Sodium (Protonix) 40 mg IVP Q12HR [facility] Last Admin: 06/21/18 12:32 Dose: 40 mg Olopatadine Hcl [ (Pazeo] 1 Drop) 0 each EA EYE DAILY [facility] Last Admin: 06/21/18 12:32 Dose: 1 each Travatan Z ( (Travoprost) 0.004%) 0 each EA EYE HS [facility] Last Admin: 06/20/18 20:34 Dose: 1 each Senna/Docusate Sodium (Senokot S) 2 tab PO BID PRN PRN Reason: Constipation Tramadol HCl (Ultram) 50 mg PO Q6H PRN PRN Reason: Moderate Pain (4-6) Last Admin: 06/17/18 20:49 Dose: 50 mg
[2018-06-21] MEDS: TRAVATAN Z 0.004% EA EYE SCH (20:35)
[2018-06-21] MEDS: Lidocaine Patch Removal 1 EACH TOP SCH (21:41)
[2018-06-22 06:46] LABS: ALT (SGPT) 55 U/L (8-55); AST (SGOT) 17 U/L (5-34); Albumin 3.2 g/dL (3.5-5.0); Alkaline Phosphatase 134 U/L (40-150); Anion Gap 11 mmol/L (10-20); BUN (Urea Nitrogen) 8 mg/dL (9.8-20.1); Bilirubin, Total 0.4 mg/dL (0.2-1.2); Calc. Creatinine Clearance 100 mL/min (70-130); Calcium 8.7 mg/dL (7.8-10.44); Carbon Dioxide 25 mmol/L (22-29); Chloride 110 mmol/L (98-107); Estimated GFR-MDRD Greater than 90; Glucose 108 mg/dL (70-105); Potassium 4.2 mmol/L (3.5-5.1); Protein, Total 6.2 g/dL (6.0-8.3); Sodium 142 mmol/L (136-145)
[2018-06-22] MEDS: Lidocaine 5% Patch TD SCH (08:43)
[2018-06-22] MEDS: Olopatadine Hcl [Pazeo] 1 DROP EA EYE SCH (08:49)
[2018-06-22 12:33] VITALS: BP 146/78; TEMP 98.1
--- NOTE | 2018-06-23 03:51 | DIS ---
DATE OF ADMISSION: 06/17/2018 DATE OF DISCHARGE: 06/22/2018 PRIMARY CARE PROVIDER: Evens Munoz MD DISCHARGE DIAGNOSES: 1. Symptomatic anemia. 2. Gastric ulcers. 3. Abnormal liver function tests. CONDITION OF PATIENT ON THE DAY OF DISCHARGE: Stable. I assessed Ms. Franks on the day of discharge. She reports abdominal pain is better. She is tolerating diet. Vital signs are stable. S1 and S2 are heard, regular. Lungs are clear to auscultation bilaterally. DISCHARGE MEDICATIONS: 1. Protonix 40 mg 2 times a day. 2. Lidocaine 5% patch, 2 patches every 24 hours. 3. Travoprost one drop to each eye at bedtime. 4. Olopatadine one drop to each eye daily. CONSULTATION DURING THIS HOSPITALIZATION: Gastroenterology, Eric Chavez MD HOSPITAL COURSE: Ms. Franks is a pleasant 58-year-old lady, who was admitted to [facility] on June 17, 2018 for symptomatic anemia. Please refer to my history and physical note dated June 17, 2018 for further details. She was seen by Gastroenterology Service. Abdominal ultrasound on June [address] scan of the abdomen and pelvis done at the time of admission showed stable moderate-sized hiatal hernia, but no acute findings. She had MRI of the abdomen for abnormal liver function tests on June 21, which showed status post cholecystectomy without evidence of biliary dilatation. Her LFTs trended down after that and were in the normal range by the day of discharge. Stool occult blood test during this hospitalization was negative. She did have EGD on June 21, which showed two nonbleeding shallow clean based ulcers in the gastric fundus. She also had patchy gastritis, which was biopsied to rule out Helicobacter pylori. She was advised to follow up with Gastroenterology Service for biopsy results. Gastroenterology Service also recommends video capsule endoscopy as an outpatient. Her abdominal pain improved. She was being discharged home with lidocaine patches. She did receive 2 units of packed RBC transfusion during this hospitalization. On June 20, she had white count of 10,000, hemoglobin 8.1, and platelet count 314,000. On June 22, she has normal sodium, normal potassium and normal creatinine. Total bilirubin, AST, ALT, and alkaline phosphatase are all normal. TSH was normal during this hospitalization. She had negative hepatitis serologies. Many thanks for allowing me to participate in your patient's care. Please feel free to contact me with any questions or concerns. DISCHARGE DESTINATION: Home. Total amount of time spent coordinating this discharge: 33 minutes. Job ID: [id number] MTDD
== END 2018-06-22 14:26 | disposition home or self-care (01) | DRG 812 ==
LOC: ERS 00:15 → ERHOLD 03:24 → OBSVTOIN 10:40 → T4-B 13:32
PROVIDERS: ADMIT Internal Medicine; ATTEND Internal Medicine
PROC: 0DB68ZX Excision of Stomach, Via Natural or Artificial Opening Endoscopic, Diagnostic (ICD-10-PCS; principal; 2018-06-17)
PROC: 0DJD8ZZ Inspection of Lower Intestinal Tract, Via Natural or Artificial Opening Endoscopic (ICD-10-PCS; 2018-06-17)
DX: D50.9 Iron deficiency anemia, unspecified (principal); H40.9 Unspecified glaucoma; R94.5 Abnormal results of liver function studies; K25.9 Gastric ulcer, unspecified as acute or chronic, without hemorrhage or perforation
CPT/HCPCS: 36415; 36430; 74177; 74181; 74183; 76700; 80048; 80053; 80076; 81003; 81015; 82274; 82607; 82728; 82746; 83010; 83540; 83550; 83615; 83690; 84443; 85025; 85046; 85060; 86704; 86705; 86706; 86709; 86803; 86850; 86870; 86900; 86901; 86922; 87086; 87340; 88305; 88312; 88342; 90471; 90686; 90732; 96374; 96376; C9113; G0008; G0009; J1100; J1756; J2001; J2270; J2405; J2704; J2765; J7050; P9016

== ENCOUNTER 2019-03-17 22:20 | Emergency (ER) | payer MEDICARE, MEDICAID ==
[2019-03-17 22:40] LABS: Bilirubin Negative (Negative); Blood, Urine Negative (Negative); Clarity Clear (Clear); Glucose, Urine (Dipstick) Normal (Negative); Leukocyte Negative Leu/uL (Negative); Nitrite Negative (Negative); Protein, Urine (Dipstick) Negative (Neg-Trace); Urobilinogen Normal mg/dL (Less than 2)
[2019-03-17] MEDS ORDERED: Ondansetron PF 4 MG/2 ML Vial ONE (22:56)
[2019-03-17] MEDS ORDERED: Morphine 4 MG/ML VIAL ONE (22:56)
[2019-03-17 23:05] LABS: Hemoglobin 8.4 g/dL (12.0-16.0); Mean Corpuscular HGB CONC 29.2 g/dL (32.0-36.0); Mean Corpuscular Hemoglobin 20.6 pg (27.0-31.0); Mean Corpuscular Volume 70.6 fL (78.0-98.0); Mean Platelet Volume 9.7 fL (7.4-10.4); Platelet Count 383 thou/uL (130-400); RBC Distribution Width 17.3 % (11.5-14.5); Red Blood Cell (RBC) Count 4.05 mill/uL (4.20-5.40); White Blood Cell (WBC) Count 10.6 thou/uL (4.8-10.8)
[2019-03-17 23:15] LABS: Anion Gap 11 mmol/L (10-20); BUN (Urea Nitrogen) 18 mg/dL (9.8-20.1); Calc. Creatinine Clearance 0 mL/min (70-130); Calcium 8.9 mg/dL (7.8-10.44); Carbon Dioxide 25 mmol/L (22-29); Chloride 106 mmol/L (98-107); Estimated GFR-MDRD 47; Glucose 141 mg/dL (70-105); Lipase 65 U/L (8-78); Potassium 4.1 mmol/L (3.5-5.1); Sodium 138 mmol/L (136-145)
--- NOTE | 2019-03-17 23:17 | RAD ---
EXAM: Chest one view: HISTORY: Abdominal pain COMPARISON: 10/30/2017 FINDINGS: Evidence for a hiatal hernia. Heart size: Within normal limits. Lungs: Clear of acute process. No evidence for pneumonia, pleural effusion, acute edema, or pneumothorax, or other significant acute process. IMPRESSION: No significant acute intrathoracic disease. Stable exam.
[2019-03-17 23:23] LABS: #Basophils 0.1 thou/uL (0.0-0.2); #Eosinphils 0.3 thou/uL (0.0-0.7); #Lymphocytes 2.1 thou/uL (1.20-3.40); #Monocytes 0.6 thou/uL (0.11-0.59); #Neutrophils 7.6 thou/uL (1.40-6.50); %Basophils 0.5 % (0.0-1.0); %Eosinophils 2.8 % (0.0-10.0); %Lymphocytes 19.5 % (21.0-51.0); %Monocytes 5.7 % (0.0-10.0); %Neutrophils 71.5 % (42.0-75.0)
[2019-03-17 23:24] LABS: Anisocytosis SLIGHT = 6-15 cells (100X) (0-5/hpf); Hypochromia SLIGHT = 6-15 cells (100X) (0-5/hpf); Large Platelets SLIGHT; MDiff Complete? YES; Microcytosis SLIGHT = 6-15 cells (100X) (0-5/hpf); Platelet Morphology Comment Appears Adequate
--- NOTE | 2019-03-18 00:08 | CT ---
EXAM: Abdomen and pelvic CT scan with contrast: HISTORY: Epigastric abdominal pain with nausea COMPARISON: 06/17/2018 FINDINGS: The visualized lung bases are clear. Liver: Unremarkable. Gallbladder:Status post cholecystectomy. Moderately distended stomach with a small hiatal hernia, much smaller than on the prior study. Pancreas:Unremarkable Spleen:Unremarkable. Adrenal glands:Unremarkable. Kidneys:No renal calculus or acute obstruction. No solid or cystic renal mass. No evidence for bowel obstruction. Small fat-containing umbilical hernia. No CT evidence for acute appendicitis. The urinary bladder is unremarkable. Reproductive system:Unremarkable No abscess, adenopathy, or abnormal fluid collection within the abdomen or pelvis. IMPRESSION: No significant acute process in the abdomen or pelvis. Moderately distended stomach. Other findings a s above.
[2019-03-18] MEDS ORDERED: Mag-Al 1200 mg/1200 mg/30 ML UDCUP ONE (00:10)
[2019-03-18] MEDS ORDERED: Lidocaine Viscous Sol 2% 15 ml UD Cup ONE (00:10)
[2019-03-18] MEDS ORDERED: Morphine 4 MG/ML VIAL ONE (00:53)
[2019-03-18] MEDS ORDERED: Metoclopramide 10 MG/10 ML UDCUP ONE (00:54)
[2019-03-18] MEDS ORDERED: Metoclopramide HCl 10 MG/2 ML VIAL ONE (00:54)
--- NOTE | 2019-03-24 15:06 | EKG ---
Test Reason : Blood Pressure : / mmHG Vent. Rate : 106 BPM Atrial Rate : 106 BPM P-R Int : 134 ms QRS Dur : 088 ms QT Int : 366 ms P-R-T Axes : 042 011 050 degrees QTc Int : 486 ms Sinus tachycardia Voltage criteria for left ventricular hypertrophy Abnormal ECG Confirmed by MASHA HDEZ DO ([id number]), continuity editor RICARDA CALZADA ([id number]) on 03/24/2019 3:05:45 PM Referred By: Confirmed By:MASHA HDEZ DO
== END 2019-03-18 04:06 | disposition home or self-care (01) ==
LOC: ERS 22:20
DX: R14.0 Abdominal distension (gaseous) (principal); R10.13 Epigastric pain; D64.9 Anemia, unspecified; J45.909 Unspecified asthma, uncomplicated
CPT/HCPCS: 71045; 74177; 80048; 81003; 83605; 83690; 84484; 85025; 93005; 96361; 96365; 96375; 96376; J2270; J2405; J2765

== ENCOUNTER 2019-06-15 14:20 | Outpatient (CLI) | payer MEDICARE, MEDICAID ==
--- NOTE | 2019-06-15 14:44 | MMO ---
Bilateral MAMMO Bilat Screen [facility]. CLINICAL HISTORY: Patient is 59 years old and is seen for screening. The patient has no family history of breast cancer. The patient has no personal history of cancer. VIEWS: The views performed were: bilateral craniocaudal with tomosynthesis and bilateral mediolateral oblique with tomosynthesis. FILMS COMPARED: The present examination has been compared to prior imaging studies performed at [facility] on 12/05/2013, 02/04/2015, 08/11/2016 and 01/02/2018. This study has been interpreted with the assistance of computer-aided detection. MAMMOGRAM FINDINGS: There are scattered fibroglandular densities. There are stable benign appearing calcifications seen in both breasts. A biopsy clip is seen in the right breast. There are no suspicious masses, suspicious calcifications, or new areas of architectural distortion. IMPRESSION: THERE IS NO MAMMOGRAPHIC EVIDENCE OF MALIGNANCY. A ROUTINE FOLLOW-UP MAMMOGRAM IN 1 YEAR IS RECOMMENDED. THE RESULTS OF THIS EXAM WERE SENT TO THE PATIENT. ACR BI-RADS Category 2 - Benign finding MAMMOGRAPHY NOTE: 1. A negative mammogram report should not delay a biopsy if a dominant of clinically suspicious mass is present. 2. Approximately 10% to 15% of breast cancers are not detected by mammography. 3. Adenosis and dense breasts may obscure an underlying neoplasm. Reported by: AYLA SCOTT MD Electonically Signed: [id number]
== END 2019-06-15 14:21 | disposition home or self-care (01) ==
LOC: BICMAMMO 14:20
PROVIDERS: ATTEND Obstetrics & Gynecology
DX: Z12.31 Encounter for screening mammogram for malignant neoplasm of breast (principal)
CPT/HCPCS: 77063; 77067

== ENCOUNTER 2019-06-20 11:01 | Observation (INO) | payer MEDICARE, MEDICAID ==
[2019-06-20 11:39] LABS: #Eosinphils 0.4 thou/uL (0.0-0.7); #Lymphocytes 1.3 thou/uL (1.20-3.40); #Monocytes 0.4 thou/uL (0.11-0.59); #Neutrophils 4.8 thou/uL (1.40-6.50); %Basophils 0.2 % (0.0-1.0); %Eosinophils 5.4 % (0.0-10.0); %Lymphocytes 18.4 % (21.0-51.0); %Monocytes 6.2 % (0.0-10.0); %Neutrophils 69.8 % (42.0-75.0); Hemoglobin 5.5 g/dL (12.0-16.0); Mean Corpuscular HGB CONC 27.2 g/dL (32.0-36.0); Mean Corpuscular Hemoglobin 17.8 pg (27.0-31.0); Mean Corpuscular Volume 65.4 fL (78.0-98.0); Mean Platelet Volume 11.7 fL (7.4-10.4); Platelet Count 383 thou/uL (130-400); RBC Distribution Width 18.4 % (11.5-14.5); White Blood Cell (WBC) Count 6.8 thou/uL (4.8-10.8)
[2019-06-20 11:45] LABS: ALT (SGPT) Less than 7 U/L (8-55); AST (SGOT) 11 U/L (5-34); Albumin 4.1 g/dL (3.5-5.0); Alkaline Phosphatase 96 U/L (40-110); Anion Gap 10 mmol/L (10-20); BUN (Urea Nitrogen) 12 mg/dL (9.8-20.1); Bilirubin, Total 0.4 mg/dL (0.2-1.2); Calc. Creatinine Clearance 0 mL/min (70-130); Calcium 8.7 mg/dL (7.8-10.44); Carbon Dioxide 24 mmol/L (22-29); Chloride 109 mmol/L (98-107); Estimated GFR-MDRD 80; Globulin 3.1 g/dL (2.4-3.5); Glucose 115 mg/dL (70-105); Potassium 4.1 mmol/L (3.5-5.1); Protein, Total 7.2 g/dL (6.0-8.3); Sodium 139 mmol/L (136-145)
[2019-06-20 13:07] LABS: INR-International Normal Ratio 1.1; PTT 28.4 SEC (22.9-36.1); Prothrombin Time 13.9 SEC (12.0-14.7)
[2019-06-20] MEDS ORDERED: Iopamidol-370 76% 500 ML 1 ML ONE (13:49)
--- NOTE | 2019-06-20 14:14 | CT ---
CT Abdomen Pelvis W Con: 06/20/2019 12:50 PM CLINICAL INFORMATION: Anemia. History of gastric ulcers COMPARISON: 03/17/2019 TECHNIQUE: Multiple contiguous axial images were obtained and a CT of the abdomen and pelvis with IV contrast. C oronal and sagittal reformats were performed. FINDINGS: Lower Chest: Atelectasis in the right lung base. Moderate hiatal hernia Abdomen: Liver: within normal limits. Bile Ducts: Normal caliber. Gallbladder: Removed Pancreas: within normal limits. Spleen: within normal limits. Adrenals: within normal limits. Kidneys: within normal limits. Pelvis: Reproductive Organs: Status post hysterectomy. Ureters: within normal limits. Bladder: within normal limits. Peritoneum: No ascites or free air, no fluid collection. Bowel: Normal caliber. Mesentery and Retroperitoneum: No enlarged mesenteric or retroperitoneal lymph nodes. Vessels: Atherosclerotic calcifications. Abdominal Wall: within normal limits. Bones: Within normal limits IMPRESSION: 1. No evidence of acute intraabdominal or pelvic abnormality. 2. Moderate hiatal hernia
[2019-06-20] MEDS ORDERED: Ondansetron PF 4 MG/2 ML Vial ONE (14:19)
[2019-06-20] MEDS ORDERED: Pantoprazole 40 MG VIAL ONE (14:19)
--- NOTE | 2019-06-20 16:10 | HP ---
PRIMARY CARE PHYSICIAN: Dr. Mike Mcmahon REASON FOR ADMISSION: Symptomatic anemia. HISTORY OF PRESENT ILLNESS: A 59-year-old female, who has underlying history of gastric and duodenal ulceration, who went to GI Clinic yesterday and she had routine blood test done. Subsequently, she was found with her hemoglobin of 5.5. The patient was also appeared short of breath in clinic. She was feeling dizziness, lightheadedness, but no syncope or chest pain. The patient denies any ofe melena or hematochezia or bright red blood per rectum. The patient denies taking any blood thinner medicine or NSAID. Today, her hemoglobin is 5.5. In the emergency room, the patient was appeared pale and the patient is being admitted to medical floor for observation. The patient will need blood transfusion and the patient will go for upper endoscopy tomorrow. The patient already had colonoscopy within a year. The patient does not have any weight loss. The patient has been evaluated in the past fully for her GI bleed, which is chronic. PAST MEDICAL HISTORY: Duodenal ulcer, gastric erosion, recurrent symptomatic anemia, glaucoma, and obesity. PAST SURGICAL HISTORY: History of hysterectomy, oophorectomy, , EGD, and colonoscopy. REVIEW OF SYSTEMS: CONSTITUTIONAL: Negative for weight loss or gain, ability to conduct usual activities. SKIN: Negative for rash, itching. EYES: Negative for double vision, pain. ENT/MOUTH: Negative for nose bleeding, neck stiffness, pain, tenderness. CARDIOVASCULAR: Negative for palpitations, dyspnea on exertion, orthopnea. RESPIRATORY: Negative for shortness of breath, wheezing, cough, hemoptysis, fever or night sweats. GASTROINTESTINAL: Negative for poor appetite, abdominal pain, heartburn, nausea, vomiting, constipation, or diarrhea. GENITOURINARY: Negative for urgency, frequency, dysuria, nocturia. MUSCULOSKELETAL: Negative for pain, swelling. NEUROLOGIC/PSYCHIATRIC: Negative for anxiety, depression. ALLERGY/IMMUNOLOGIC: Negative for skin rash, bleeding tendency. Please see my HPI for pertinent positives and negatives. All other review of systems reviewed and negative except as mentioned in HPI. ALLERGIES: NO KNOWN DRUG ALLERGY. SOCIAL HISTORY: The patient denies any tobacco, alcohol, or illicit drug abuse. She lives at home with family. CURRENT HOME MEDICATION: 1. Lansoprazole 30 mg twice daily. 2. Travatan Z ophthalmic drops at bedtime. 3. Pazeo ophthalmic drops at bedtime. EMERGENCY ROOM COURSE: The patient is getting blood transfusion. PHYSICAL EXAMINATION: VITAL SIGNS: Currently, blood pressure 109/57, pulse 84, respiratory rate 16, temperature 98.5, and saturation 95% on room air. Weight 82 kg. GENERAL: The patient is currently alert, awake, no acute distress. HEENT: Head; normocephalic and atraumatic. Eyes; conjunctivae are pale. ENT, pale mucous membrane. NECK: Supple. No JVD. LUNGS: Clear to auscultation without any rhonchi or rales. CARDIAC: S1 and S2 regular. Soft systolic hemic murmur noted. No gallop. No rub. ABDOMEN: Obesity present. Bowel sounds present. Mild epigastric tenderness noted. Good distal pulsation. No peritoneal sign. EXTREMITIES: No edema. Good distal pulsation. SKIN: Pale. No rash. HEMATOLOGICAL SYSTEM: No lymphadenopathy. NEUROLOGIC: Nonfocal examination. SIGNIFICANT LABORATORY DATA: CT abdomen and pelvis done in the emergency room today showing no acute intraabdominal process, moderate hiatal hernia. CBC; WBC 6.8, hemoglobin 5.5, platelet 383, and MCV 65.4. INR 1.1. BMP; sodium 139, potassium 4.1, chloride 109, carbon dioxide 24, BUN 12, creatinine 0.74, glucose 115, and calcium 8.7. LFT; AST 11, ALT less than 7, alkaline phosphatase 96, albumin 4.1, lipase 22. EKG showing sinus rhythm. ASSESSMENT AND PLAN: 1. Severe symptomatic iron deficiency anemia. The patient will need 2 units of blood transfusion. We will check ferritin and we will also give her iron infusion today and tomorrow. The patient is planned for upper endoscopy tomorrow. We will keep her n.p.o. after midnight. The patient already had full workup done in recent past for her gastrointestinal bleed, which is unremarkable. Tomorrow, we will also check fasting gastrin level because of recurrent ulceration in her stomach. 2. Obesity. Dietary education given. Weight loss education given. 3. History of peptic ulcer disease. We will continue Protonix 40 mg IV b.i.d. 4. Glaucoma. We will continue Travatan Z and Pazeo eye drops as per home dosage. 5. Deep venous thrombosis prophylaxis, SCD boots. Gastrointestinal prophylaxis, the patient is already on Protonix therapy. CODE STATUS: The patient is full code. DISPOSITION PLAN: Based on clinical course, likely within 24 hours. Plan of care discussed with the patient in detail. I have also discussed case with Dr. William WILCOX. Job ID: [id number]
[2019-06-20] MEDS ORDERED: Guaifenesin DM 100-10/5 ML UDCUP PO PRN (16:52)
[2019-06-20] MEDS ORDERED: Acetaminophen 325 MG TAB PO PRN (16:52)
[2019-06-20] MEDS ORDERED: Loratadine 10 MG TAB PO PRN (16:52)
[2019-06-20] MEDS ORDERED: Diabetic Tussin 200 MG/10 ML UDCUP PO PRN (16:52)
[2019-06-20] MEDS ORDERED: Cepastat Lozenges 1 LOZ PO PRN (16:52)
[2019-06-20] MEDS ORDERED: Ondansetron ODT 4 MG TAB PO PRN (16:52)
[2019-06-20] MEDS ORDERED: hydrALAZINE 20 MG/ML VIAL SLOW IVP PRN (16:52)
[2019-06-20] MEDS ORDERED: Bisacodyl 10 MG SUPP PR PRN (16:52)
[2019-06-20] MEDS ORDERED: Sodium Chloride 0.65% Nasal 44 ML BOT EA NARE PRN (16:52)
[2019-06-20] MEDS ORDERED: Ondansetron PF 4 MG/2 ML Vial IVP PRN (16:52)
[2019-06-20] MEDS ORDERED: Artificial Tears 18 DROP/0.9 ML EA EYE PRN (16:52)
[2019-06-20] MEDS ORDERED: Senokot S 8.6-50 MG TAB PO PRN (16:52)
[2019-06-20] MEDS ORDERED: Iron Sucrose Complex 200 MG in Sodium Chloride 0.9% 250 ML 250 ML IVPB SCH (16:52)
[2019-06-20] MEDS ORDERED: Zolpidem Tartrate 5 MG TAB PO PRN (16:52)
[2019-06-20] MEDS ORDERED: Calcium Carbonate 500 MG ChewTAB PO PRN (16:52)
[2019-06-20] MEDS ORDERED: HYDROcodone/Acetaminophen 5/325 mg Tablet PO PRN (16:52)
[2019-06-20 17:00] VITALS: BMI 31.6
[2019-06-20] MEDS ORDERED: Iron, Sodium Ferric Gluconate 250 MG in Sodium Chloride 0.9% 100 ML IVPB SCH (18:30)
[2019-06-20] MEDS: Pantoprazole 40 MG VIAL IVP SCH (20:22)
[2019-06-20] MEDS ORDERED: Latanoprost 0.005% Ophth Soln 2.5 ml Bottle EA EYE SCH (21:00)
--- NOTE | 2019-06-20 21:24 | CON ---
DATE OF CONSULTATION: 06/20/2019 CHIEF COMPLAINT: Shortness of breath on exertion. HISTORY OF PRESENT ILLNESS: Ms. Franks is a 59-year-old woman, who presented to GI Clinic yesterday for followup. She has had shortness of breath on exertion over the last several weeks. She has a history of iron deficiency anemia and has undergone upper and lower endoscopy for evaluation of that. She had multiple upper endoscopies last year with ulcers noted previously in the duodenum and stomach. She has had prior duodenal biopsies that have been negative for celiac disease. Gastric biopsies have been negative for Helicobacter pylori. She quit taking her proton pump inhibitor several months ago, because she had trouble with transportation in filling her prescriptions. She has had some epigastric abdominal cramping pain intermittently. She has had no nausea or vomiting. No diarrhea, constipation, or black or red stools. She had blood work in the office yesterday that showed severe anemia with a hemoglobin of 5. Her baseline hemoglobin has run around 8. PAST MEDICAL HISTORY: Iron deficiency anemia, multiple ulcers in the stomach and duodenum. She has a history of glaucoma. PAST SURGICAL HISTORY: Multiple upper and lower endoscopies, hysterectomy, oophorectomy, . FAMILY HISTORY: Negative for GI malignancy. SOCIAL HISTORY: No alcohol, tobacco, or drugs. ALLERGIES: NO KNOWN DRUG ALLERGIES. MEDICATIONS: Prior to admission : 1. Travoprost eyedrops. 2. Olopatadine eyedrops. 3. She is supposed to have been on proton pump inhibitor, but has not been on that recently, actually over the last several months. REVIEW OF SYSTEMS: Negative x10 systems reviewed, except as stated in the history of present illness. PHYSICAL EXAMINATION: VITAL SIGNS: Temperature 97.7, pulse 94, and blood pressure 151/66. GENERAL: She is in no acute distress. Alert and oriented x3. HEENT: Eyes have no scleral icterus. Oropharynx is clear without lesions. No cervical or supraclavicular lymphadenopathy. She is pale. LUNGS: Clear to auscultation bilaterally. HEART: Regular rate and rhythm without murmur. ABDOMEN: Soft, nontender, and nondistended. Bowel sounds are present. EXTREMITIES: No lower extremity edema. LABORATORY DATA: White blood cell count 6.8, hemoglobin 5.5, MCV 65, platelets 383. INR 1.1. Creatinine 0.74. Bilirubin 0.4, AST 11, ALT 7, alkaline phosphatase 96, albumin 4.1, lipase 22. IMPRESSION: 1. Severe recurrent iron deficiency anemia. Her hemoglobin runs around 8 at baseline, however, now she has dropped this down to 5.5 with significant symptoms associated. 2. Anemia of chronic blood loss. 3. History of duodenal and gastric ulcers. She is not being compliant with proton pump inhibitor. She states that she now after receiving a prescription yesterday, was able to fill the prescription for only three dollars. She states that she will be more compliant with proton pump inhibitor in the future. RECOMMENDATIONS: 1. Proton pump inhibitor. 2. Plane EGD tomorrow. 3. Check fasting gastrin level in the morning. Job ID: [id number]
[2019-06-21 03:40] LABS: #Eosinphils 0.4 thou/uL (0.0-0.7); #Lymphocytes 1.8 thou/uL (1.20-3.40); #Monocytes 0.5 thou/uL (0.11-0.59); #Neutrophils 4.7 thou/uL (1.40-6.50); %Basophils 0.6 % (0.0-1.0); %Eosinophils 5.2 % (0.0-10.0); %Lymphocytes 23.9 % (21.0-51.0); %Monocytes 6.5 % (0.0-10.0); %Neutrophils 63.9 % (42.0-75.0); Hemoglobin 7.3 g/dL (12.0-16.0); Mean Corpuscular HGB CONC 29.5 g/dL (32.0-36.0); Mean Corpuscular Hemoglobin 20.8 pg (27.0-31.0); Mean Corpuscular Volume 70.6 fL (78.0-98.0); Mean Platelet Volume 11.8 fL (7.4-10.4); Platelet Count 305 thou/uL (130-400); RBC Distribution Width 20.9 % (11.5-14.5); Red Blood Cell (RBC) Count 3.48 mill/uL (4.20-5.40); White Blood Cell (WBC) Count 7.3 thou/uL (4.8-10.8)
[2019-06-21 03:54] LABS: Anion Gap 10 mmol/L (10-20); BUN (Urea Nitrogen) 9 mg/dL (9.8-20.1); Calc. Creatinine Clearance 108 mL/min (70-130); Calcium 8.3 mg/dL (7.8-10.44); Carbon Dioxide 24 mmol/L (22-29); Chloride 108 mmol/L (98-107); Estimated GFR-MDRD 81; Glucose 101 mg/dL (70-105); Potassium 4.4 mmol/L (3.5-5.1); Sodium 138 mmol/L (136-145)
[2019-06-21] MEDS: Pantoprazole 40 MG VIAL IVP SCH (08:31)
[2019-06-21] MEDS ORDERED: OLOPATADINE HCL EA EYE SCH (09:00)
[2019-06-21] MEDS ORDERED: Iron, Sodium Ferric Gluconate 250 MG in Sodium Chloride 0.9% 100 ML IVPB SCH (09:00)
[2019-06-21] MEDS ORDERED: Lidocaine 1% PF 5 ML VIAL ONE (14:35)
[2019-06-21] MEDS ORDERED: PROPOFOL 200 MG/20 ML VIAL ONE (14:35)
--- NOTE | 2019-06-21 15:28 | PDOC.HOSPP ---
- Subjective Encounter Date: 06/21/19 Encounter Time: 11:00 Subjective: Patient seen and examined. No new complaints. No overnight events - Objective Vital Signs & Weight: Vital Signs (12 hours) Temp Pulse Resp BP Pulse Ox 06/21/19 11:27 98.0 F 70 20 170/77 H 100 06/21/19 07:49 97.8 F 79 20 148/63 H 94 L 06/21/19 07:38 95 Weight Weight 184 lb Most Recent Monitor Data Heart Rate from ECG 80 I&O: 06/20/19 06/21/19 06/22/19 06:59 06:59 06:59 Intake Total 2430 370 Output Total 600 Balance 1830 370 Result Diagrams: 06/21/19 03:27 06/21/19 03:27 Hospitalist ROS - Review of Systems ENT: denies: ear pain, ear discharge, nose pain, nose discharge, nose congestion , mouth pain, mouth swelling, throat pain, throat swelling, other Respiratory: denies: cough, dry, shortness of breath, hemoptysis, SOB with excertion, pleuritic pain, sputum, wheezing, other Cardiovascular: denies: chest pain, palpitations, orthopnea, paroxysmal noc. dyspnea, edema, light headedness, other Gastrointestinal: denies: nausea, vomiting, abdominal pain, diarrhea, constipation, melena, hematochezia, other Genitourinary: denies: dysuria, frequency, incontinence, hematuria, retention, other Musculoskeletal: denies: neck pain, shoulder pain, arm pain, back pain, hand pain, leg pain, foot pain, other Skin: denies: rash, lesions, whitney, bruising, other - Medication Medications: Active Medications Generic Name Dose Route Start Last Admin Trade Name Freq PRN Reason Stop Dose Admin Latanoprost 1 drop 06/20/19 21:00 06/20/19 20:15 Xalatan 0.005% Ophth Soln EA EYE 1 drop HS BURKE Administration Pantoprazole Sodium 40 mg 06/20/19 21:00 06/21/19 08:31 Protonix IVP 40 mg Q12HR BURKE Administration - Exam General Appearance: NAD, awake alert Eye: PERRL, anicteric sclera ENT: normocephalic atraumatic, no oropharyngeal lesions Neck: supple, symmetric, no JVD Heart: RRR, no murmur, no gallops Respiratory: CTAB, no wheezes, no rales Gastrointestinal: soft, non-tender, non-distended Extremities: no cyanosis, no clubbing, no edema Skin: normal turgor, no lesions Neurological: cranial nerve grossly intact, no focal deficits Musculoskeletal: normal tone, normal strength Psychiatric: normal affect, normal behavior Hosp A/P (1) Iron deficiency anemia Code(s): D50.9 - IRON DEFICIENCY ANEMIA, UNSPECIFIED Status: Acute (2) Symptomatic anemia Code(s): D64.9 - ANEMIA, UNSPECIFIED Status: Acute (3) Glaucoma Code(s): H40.9 - UNSPECIFIED GLAUCOMA Status: Chronic (4) Hiatal hernia Code(s): K44.9 - DIAPHRAGMATIC HERNIA WITHOUT OBSTRUCTION OR GANGRENE Status: Chronic - Plan old records reviewed/req 06/21/19 s/p EGD IV iron given OK to DC if GI OK see discharge guru
[2019-06-21 15:39] VITALS: BP 161/72; TEMP 98.1
--- NOTE | 2019-06-21 15:42 | DIS ---
DATE OF ADMISSION: 06/20/2019 DATE OF DISCHARGE: 06/21/2019 PRIMARY CARE PHYSICIAN: Dr. Lisandro Mckeon. DISCHARGE DISPOSITION: Home. PRIMARY DISCHARGE DIAGNOSES: 1. Symptomatic anemia status post 2 units transfusion. 2. Status post esophagogastroduodenoscopy. SECONDARY DISCHARGE DIAGNOSES: History of peptic ulcer disease, recurrent and asymptomatic anemia, glaucoma, obesity with BMI 31, and hiatal hernia. PRIMARY PROCEDURE/OPERATION: Upper endoscopy. RADIOLOGICAL INVESTIGATION: Abdomen and pelvis CT scan. SIGNIFICANT LABORATORY DATA: Hemoglobin 7.3. INR 1.1. Creatinine 0.73. Ferritin 3.81. LFT normal. Lipase 22. DISCHARGE MEDICATIONS: 1. Lansoprazole 30 mg p.o. b.i.d. 2. Pazeo eye drops daily. 3. Travatan Z ophthalmic drops at bedtime. 4. Ferrous sulfate 325 mg p.o. b.i.d. CONTRAINDICATION: None. CODE STATUS: Full code. INPATIENT CONTROLS DESIGNER: John Thomas MD TEST RESULTS PENDING ON DISCHARGE: Procedure report of EGD. HOSPITAL COURSE: A 59-year-old female, who was evaluated at GI clinic and her hemoglobin was 5.5 and that is why patient was sent to ER for admission. This patient was admitted to the hospital and we transfused 2 units of blood. We have given 2 doses of IV iron while in hospital. Her hemoglobin appropriately improved. The patient underwent an upper endoscopy and GI cleared her for discharge. We have advised the patient to take all previous medication along with ferrous sulfate 325 mg p.o. b.i.d. or iron supplement. The patient will follow up with Gastroenterology as an outpatient basis. The patient is medically stable for discharge. Job ID: [id number]
--- NOTE | 2019-06-21 16:12 | OP ---
DATE OF PROCEDURE: 06/21/2019 UNIX ENGINEER SURGEON: None. PROCEDURE PERFORMED: Esophagogastroduodenoscopy, diagnostic. INDICATIONS: 1. Iron-deficiency anemia. 2. Prior history of gastric ulcers. MEDICATIONS: See Anesthesia record. FINDINGS: After discussion of the risks, benefits, and alternatives of the procedure, informed consent was obtained and witnessed. Pre-endoscopic cardiopulmonary examination was satisfactory. Time-out was performed before sedation was achieved. Sedation was achieved with Anesthesia assistance in the endoscopy unit. A Pentax adult upper endoscope was placed into the oropharynx and passed through the cricopharyngeus under direct visualization. The esophageal mucosa appeared normal throughout with a normal-appearing Z-line at 31 cm from the incisors. The endoscope was advanced into the stomach. Forward and retroflexed views of the entire gastric mucosa were obtained. There is a 5 cm hiatal hernia, but I see no evidence of any Juni erosions or ulcerations. The remainder of the gastric mucosa also appears normal. There is no evidence of gastritis or any erosions. There is a small amount of retained particulate food matter in the gastric fundus, but this did not obscure my view of the mucosa. The upper endoscope was passed through the pylorus and into the first and second portions of the duodenum, which also appeared normal. The upper endoscope was completely withdrawn and the patient allowed to recover. The patient tolerated the procedure well. There were no immediate postprocedure complications. IMPRESSION: 1. 5 cm hiatal hernia. 2. Some retained food in the gastric fundus. 3. Otherwise normal esophagogastroduodenoscopy. RECOMMENDATIONS: 1. Advance diet. 2. Continue proton pump inhibitor. 3. Follow up in the GI outpatient clinic with Dr. Thomas. He may plan for outpatient capsule endoscopy. GI will sign off. Please call back anytime with questions or concerns. Job ID: [id number]
== END 2019-06-21 16:02 | disposition home or self-care (01) ==
LOC: ERS 11:01 → 2SW 16:48
PROVIDERS: ADMIT Family Medicine; ATTEND Family Medicine
PROC: 0DJ08ZZ Inspection of Upper Intestinal Tract, Via Natural or Artificial Opening Endoscopic (ICD-10-PCS; principal; 2019-06-21)
DX: D50.9 Iron deficiency anemia, unspecified (principal); K44.9 Diaphragmatic hernia without obstruction or gangrene; H40.9 Unspecified glaucoma; E66.9 Obesity, unspecified; Z68.31 Body mass index [BMI] 31.0-31.9, adult; Z79.899 Other long term (current) drug therapy; Z87.11 Personal history of peptic ulcer disease
CPT/HCPCS: 36430; 43235; 74177; 80048; 80053; 82728; 82941; 83690; 85025 ×2; 85610; 85730; 86850; 86900; 86901; 86902; 86920; 86922; 96365; 96366; 96375; 96376 ×2; 99285; G0378 ×2; P9016; 36415; 96374; C9113; J2001; J2405; J2704; J2916; J3490; Q9967

== ENCOUNTER 2020-06-24 08:57 | Outpatient (CLI) | payer MEDICARE, MEDICAID ==
--- NOTE | 2020-06-24 09:21 | MMO ---
Bilateral MAMMO Bilat Screen [facility]DI+[facility]. CLINICAL HISTORY: Patient is 60 years old and is seen for screening. The patient family history of breast cancer is unknown. The patient has no personal history of cancer. VIEWS: The views performed were: bilateral craniocaudal with tomosynthesis and bilateral mediolateral oblique with tomosynthesis. FILMS COMPARED: The present examination has been compared to prior imaging studies performed at [facility] on 02/04/2015, 08/11/2016, 01/02/2018 and 06/15/2019. This study has been interpreted with the assistance of computer-aided detection. MAMMOGRAM FINDINGS: There are scattered fibroglandular densities. There is an asymmetry seen in the middle central region of the left breast. In the right breast, there are no suspicious masses, calcifications or areas of architectural distortion. IMPRESSION: ASYMMETRY IN THE LEFT BREAST REQUIRES ADDITIONAL EVALUATION. RECOMMEND DIAGNOSTIC MAMMOGRAM. ULTRASOUND MAY ALSO PROVE USEFUL AT RECALL. THE RESULTS OF THIS EXAM WERE SENT TO THE PATIENT. ACR BI-RADS Category 0 - Incomplete: Need additional imaging evaluation. [facility] will notify the patient of the need for additional imaging services. MAMMOGRAPHY NOTE: 1. A negative mammogram report should not delay a biopsy if a dominant of clinically suspicious mass is present. 2. Approximately 10% to 15% of breast cancers are not detected by mammography. 3. Adenosis and dense breasts may obscure an underlying neoplasm. Reported by: AYLA SCOTT MD Electonically Signed: [id number]
== END 2020-06-24 08:58 | disposition home or self-care (01) ==
LOC: BICMAMMO 08:57
PROVIDERS: ATTEND Obstetrics & Gynecology
DX: Z12.31 Encounter for screening mammogram for malignant neoplasm of breast (principal); Z80.3 Family history of malignant neoplasm of breast; N64.89 Other specified disorders of breast
CPT/HCPCS: 77063; 77067

== ENCOUNTER 2020-06-27 14:04 | Outpatient (CLI) | payer MEDICARE, MEDICAID ==
--- NOTE | 2020-06-27 14:46 | MMO ---
Left Breast MAMMO Unilat Diag DDI LT+RODDY. CLINICAL HISTORY: Patient is 60 years old and is seen for diagnostic exam. The patient has no personal history of cancer. VIEWS: The views performed were: left craniocaudal with tomosynthesis; left mediolateral oblique with tomosynthesis; and left mediolateral with tomosynthesis. FILMS COMPARED: The present examination has been compared to prior imaging studies performed at [facility] on 01/02/2018, 06/15/2019, 06/24/2020 and 06/27/2020. This study has been interpreted with the assistance of computer-aided detection. MAMMOGRAM FINDINGS: There are scattered fibroglandular densities. Faint 8 mm density persists posterior slightly outer left breast, only seen on cc view. No ultrasound abnormality identified. See ultrasound report. Recommend 6 month left mammogram. IMPRESSION: FINDING IN THE LEFT BREAST IS PROBABLY BENIGN. FOLLOW-UP IN 6 MONTHS IS RECOMMENDED. THE RESULTS OF THIS EXAM WERE SENT TO THE PATIENT. ACR BI-RADS Category 3 - Probably benign finding - short interval follow-up suggested. [facility] will notify the patient of the need for additional imaging services. MAMMOGRAPHY NOTE: 1. A negative mammogram report should not delay a biopsy if a dominant of clinically suspicious mass is present. 2. Approximately 10% to 15% of breast cancers are not detected by mammography. 3. Adenosis and dense breasts may obscure an underlying neoplasm. Reported by: JUANA MENDOZA MD Electonically Signed: [id number]
--- NOTE | 2020-06-27 14:55 | ULT ---
ULTRASOUND LEFT BREAST: 06/27/20 INDICATIONS: Ultrasound of the posterior mid to slightly outer left breast is performed to assess a faint density seen on mammography. This is only identified in the CC view. FINDINGS: Employment Clerk ultrasound images were obtained at 12, 1, 2, 3,, 4, 5, and 6 o'clock positions. No son ographic abnormality identified. IMPRESSION: No sonographic abnormality identified. The faint density persists on the mammogram CC view. Recommend repeat left breast mammogram in six months to confirm stability of the mammogram findings. BIRADS 3: Probably Benign Finding Initial Short-Interval Follow-Up Suggested Initial short-term follow up (usually 6-month) examination POS: OFF
== END 2020-06-27 14:05 | disposition home or self-care (01) ==
LOC: BICMAMMO 14:04
PROVIDERS: ATTEND Obstetrics & Gynecology
DX: N64.89 Other specified disorders of breast (principal); R92.2 Inconclusive mammogram
CPT/HCPCS: 76642; 77065; G0279

== ENCOUNTER 2020-12-25 10:30 | Outpatient (CLI) | payer MEDICARE, MEDICAID | END 2020-12-25 10:31 | disposition home or self-care (01) | LOC: BICMAMMO 10:30 | PROVIDERS: ATTEND Obstetrics & Gynecology | DX: R92.8 Other abnormal and inconclusive findings on diagnostic imaging of breast (principal); R92.1 Mammographic calcification found on diagnostic imaging of breast; N64.89 Other specified disorders of breast | CPT/HCPCS: 76642; 77065; G0279 ==

== ENCOUNTER 2021-04-01 13:50 | Inpatient (IN) | payer MEDICARE, MEDICAID ==
[~2021-04-01 13:50] MED LIST changes: -ISOVUE-370 76%-LOCM 1 ML ONE; +Iopamidol-370 76% 500 ML 1 ML ONE
[2021-04-01 15:07] LABS: #Eosinphils 0.2 thou/uL (0.0-0.7); #Lymphocytes 2.5 thou/uL (1.20-3.40); #Monocytes 0.7 thou/uL (0.11-0.59); #Neutrophils 6.5 thou/uL (1.40-6.50); %Basophils 0.5 % (0.0-1.0); %Eosinophils 1.9 % (0.0-10.0); %Lymphocytes 25.3 % (21.0-51.0); %Monocytes 7.1 % (0.0-10.0); %Neutrophils 65.3 % (42.0-75.0); Hemoglobin 6.3 g/dL (12.0-16.0); Mean Corpuscular HGB CONC 29.5 g/dL (32.0-36.0); Mean Corpuscular Volume 74.7 fL (78.0-98.0); Mean Platelet Volume 9.7 fL (7.4-10.4); Platelet Count 464 thou/uL (130-400); RBC Distribution Width 18.5 % (11.5-14.5); Red Blood Cell (RBC) Count 2.87 mill/uL (4.20-5.40)
[2021-04-01] MEDS ORDERED: Morphine 4 MG/ML VIAL ONE ×2 (15:11→17:00)
[2021-04-01] MEDS ORDERED: Ondansetron PF 4 MG/2 ML Vial ONE ×2 (15:11→17:00)
[2021-04-01 15:14] LABS: Bilirubin Negative (Negative); Blood, Urine Negative (Negative); Clarity Clear (Clear); Glucose, Urine (Dipstick) Normal (Negative); Ketone, Urine Negative (Negative); Leukocyte Negative Leu/uL (Negative); Nitrite Negative (Negative); Protein, Urine (Dipstick) Negative (Neg-Trace); Specific Gravity, Urine 1.023 (1.002-1.036); pH, Urine 5.5 (5.0-9.0)
[2021-04-01 15:32] LABS: ALT (SGPT) 11 U/L (8-55); AST (SGOT) 39 U/L (5-34); Albumin 3.8 g/dL (3.4-4.8); Alkaline Phosphatase 77 U/L (40-110); Anion Gap 13 mmol/L (10-20); Anisocytosis SLIGHT = 6-15 cells (100X) (0-5/hpf); BUN (Urea Nitrogen) 16 mg/dL (9.8-20.1); Bilirubin, Total 0.3 mg/dL (0.2-1.2); Calc. Creatinine Clearance 0 mL/min (70-130); Calcium 9.1 mg/dL (7.8-10.44); Carbon Dioxide 26 mmol/L (23-31); Chloride 104 mmol/L (98-107); Globulin 3.2 g/dL (2.4-3.5); Glucose 114 mg/dL (80-115); Hypochromia SLIGHT = 6-15 cells (100X) (0-5/hpf); Lipase 43 U/L (8-78); MDiff Complete? YES; Microcytosis SLIGHT = 6-15 cells (100X) (0-5/hpf); Ovalocytes SLIGHT = 2-5 cells (100X) (0-1/hpf); Platelet Morphology Comment Appears Increased; Polychromasia MODERATE = 3-4 cells (100X) (0-2/hpf); Potassium 4.9 mmol/L (3.5-5.1); Schistocytes SLIGHT = 2-5 cells (100X) (0-1/hpf); Sodium 138 mmol/L (136-145); Target Cells SLIGHT = 2-5 cells (100X) (0-1/hpf)
[2021-04-01] MEDS ORDERED: Bisacodyl 10 MG SUPP PR PRN (19:28)
[2021-04-01] MEDS ORDERED: Acetaminophen 325 MG TAB PO PRN (19:28)
[2021-04-01] MEDS ORDERED: Acetaminophen 650 MG Suppository PR PRN (19:28)
[2021-04-01] MEDS ORDERED: Senokot S 8.6-50 MG TAB PO PRN (19:28)
[2021-04-01 20:39] LABS: SARS-CoV-2 NAA Rapid Test Not Detected (NotDetected)
[2021-04-01] MEDS: Morphine 4 MG/ML VIAL SLOW IVP PRN (21:52)
[2021-04-01] MEDS: Sodium Chloride 0.9% 1,000 ML IV SCH (21:52)
[2021-04-01] MEDS: Pantoprazole 40 MG VIAL IVP SCH (21:53)
[2021-04-01 22:42] VITALS: BMI 33.7
[2021-04-02 00:05] LABS: Mean Corpuscular HGB CONC 29.4 g/dL (32.0-36.0); Mean Corpuscular Hemoglobin 23.3 pg (27.0-31.0); Mean Corpuscular Volume 79.1 fL (78.0-98.0); Mean Platelet Volume 9.9 fL (7.4-10.4); Platelet Count 344 thou/uL (130-400); RBC Distribution Width 18.8 % (11.5-14.5); Red Blood Cell (RBC) Count 3.01 mill/uL (4.20-5.40); White Blood Cell (WBC) Count 9.4 thou/uL (4.8-10.8)
[2021-04-02] MEDS: Morphine 4 MG/ML VIAL SLOW IVP PRN ×5 (00:11→20:57)
[2021-04-02 00:17] LABS: #Eosinphils 0.3 thou/uL (0.0-0.7); #Lymphocytes 2.4 thou/uL (1.20-3.40); #Monocytes 0.5 thou/uL (0.11-0.59); #Neutrophils 6.2 thou/uL (1.40-6.50); %Basophils 0.4 % (0.0-1.0); %Eosinophils 2.7 % (0.0-10.0); %Lymphocytes 25.4 % (21.0-51.0); %Monocytes 5.7 % (0.0-10.0); %Neutrophils 65.8 % (42.0-75.0); Anisocytosis MODERATE=16-30 cells (100X) (0-5/hpf); Hypochromia SLIGHT = 6-15 cells (100X) (0-5/hpf); MDiff Complete? YES
[2021-04-02] MEDS: Ondansetron PF 4 MG/2 ML Vial IVP PRN ×3 (06:13→21:16)
[2021-04-02 07:01] LABS: #Basophils 0.1 thou/uL (0.0-0.2); #Eosinphils 0.2 thou/uL (0.0-0.7); #Lymphocytes 2.8 thou/uL (1.20-3.40); #Monocytes 0.6 thou/uL (0.11-0.59); #Neutrophils 5.5 thou/uL (1.40-6.50); %Basophils 0.9 % (0.0-1.0); %Eosinophils 2.1 % (0.0-10.0); %Lymphocytes 30.8 % (21.0-51.0); %Monocytes 6.5 % (0.0-10.0); %Neutrophils 59.7 % (42.0-75.0); Hemoglobin 7.2 g/dL (12.0-16.0); Mean Corpuscular HGB CONC 29.3 g/dL (32.0-36.0); Mean Corpuscular Hemoglobin 22.8 pg (27.0-31.0); Mean Corpuscular Volume 77.9 fL (78.0-98.0); Mean Platelet Volume 9.9 fL (7.4-10.4); Platelet Count 396 thou/uL (130-400); RBC Distribution Width 18.6 % (11.5-14.5); Red Blood Cell (RBC) Count 3.16 mill/uL (4.20-5.40); White Blood Cell (WBC) Count 9.2 thou/uL (4.8-10.8)
[2021-04-02 07:17] LABS: Anion Gap 15 mmol/L (10-20); BUN (Urea Nitrogen) 18 mg/dL (9.8-20.1); Calc. Creatinine Clearance 107 mL/min (70-130); Calcium 8.6 mg/dL (7.8-10.44); Carbon Dioxide 21 mmol/L (23-31); Chloride 106 mmol/L (98-107); Glucose 129 mg/dL (80-115); Iron 36 ug/dL (50-170); Iron 41 ug/dL (50-170); Iron Binding Capacity, Total 441 mcg/dL (265-497); Iron Binding Capacity, Total 461 mcg/dL (265-497); Potassium 4.5 mmol/L (3.5-5.1); Sodium 137 mmol/L (136-145)
[2021-04-02 07:29] LABS: Hypochromia SLIGHT = 6-15 cells (100X) (0-5/hpf); MDiff Complete? YES; Microcytosis SLIGHT = 6-15 cells (100X) (0-5/hpf); Ovalocytes SLIGHT = 2-5 cells (100X) (0-1/hpf); Platelet Morphology Comment Appears Adequate; Polychromasia SLIGHT = 2-3 cells (100X) (0-2/hpf)
[2021-04-02] MEDS: Pantoprazole 40 MG VIAL IVP SCH ×2 (09:45→20:44)
[2021-04-02] MEDS: Sodium Chloride 0.9% 1,000 ML IV SCH (09:45)
[2021-04-02] MEDS ORDERED: Iron, Sodium Ferric Gluconate 250 MG in Sodium Chloride 0.9% 250 ML 250 ML IVPB SCH (16:30)
[2021-04-02] MEDS ORDERED: GoLYTELY 4,000 ml Bottle PO SCH (18:00)
[2021-04-03] MEDS: Morphine 4 MG/ML VIAL SLOW IVP PRN ×4 (00:18→20:14)
[2021-04-03] MEDS: Sodium Chloride 0.9% 1,000 ML IV SCH ×3 (02:52→23:20)
[2021-04-03] MEDS: Ondansetron PF 4 MG/2 ML Vial IVP PRN (04:03)
[2021-04-03 05:47] LABS: Hemoglobin 6.6 g/dL (12.0-16.0); Platelet Count 260 thou/uL (130-400)
[2021-04-03] MEDS ORDERED: Fentanyl 100 MCG/2 ML VIAL ONE (09:13)
[2021-04-03] MEDS: Pantoprazole 40 MG VIAL IVP SCH ×2 (09:42→20:14)
[2021-04-03] MEDS ORDERED: Dexamethasone 20 MG/5 ML VIAL ONE (09:55)
[2021-04-03] MEDS ORDERED: Ondansetron PF 4 MG/2 ML Vial ONE (09:55)
[2021-04-03] MEDS: Sucralfate 1 GM/10 ML UDCUP PO SCH ×2 (15:14→20:14)
[2021-04-04] MEDS: Morphine 4 MG/ML VIAL SLOW IVP PRN ×6 (00:26→23:21)
[2021-04-04] MEDS ORDERED: Morphine 4 MG/ML VIAL SLOW IVP PRN (01:23)
[2021-04-04] MEDS: hydrALAZINE 20 MG/ML VIAL SLOW IVP PRN (04:16)
[2021-04-04] MEDS ORDERED: Labetalol HCl 100 MG/20 ML VIAL SLOW IVP PRN (05:08)
[2021-04-04 05:18] LABS: Hemoglobin 7.2 g/dL (12.0-16.0); Platelet Count 236 thou/uL (130-400)
[2021-04-04] MEDS: Pantoprazole 40 MG VIAL IVP SCH ×2 (09:22→21:00)
[2021-04-04] MEDS: Sucralfate 1 GM/10 ML UDCUP PO SCH ×3 (09:22→20:59)
[2021-04-04] MEDS: Sodium Chloride 0.9% 1,000 ML IV SCH (13:24)
[2021-04-04] MEDS ORDERED: Senokot S 8.6-50 MG TAB PO SCH (21:00)
[2021-04-05] MEDS: Morphine 4 MG/ML VIAL SLOW IVP PRN ×5 (04:36→21:47)
[2021-04-05 05:15] LABS: Hemoglobin 7.8 g/dL (12.0-16.0); Platelet Count 279 thou/uL (130-400)
[2021-04-05] MEDS ORDERED: FLU VACC QS2021-22(6MOS UP)/PF 60 MCG/0.5 ML SYRINGE IM ONE (09:00)
[2021-04-05] MEDS ORDERED: Amlodipine 5 MG TAB PO SCH (09:00)
[2021-04-05] MEDS: Sucralfate 1 GM/10 ML UDCUP PO SCH ×3 (09:16→20:36)
[2021-04-05] MEDS: Sodium Chloride 0.9% 1,000 ML IV SCH (09:16)
[2021-04-05] MEDS: Pantoprazole 40 MG VIAL IVP SCH ×2 (09:16→20:36)
[2021-04-05] MEDS: Ondansetron PF 4 MG/2 ML Vial IVP PRN (11:45)
[2021-04-05] MEDS: hydrALAZINE 20 MG/ML VIAL SLOW IVP PRN (20:36)
[2021-04-06] MEDS: Morphine 4 MG/ML VIAL SLOW IVP PRN ×4 (00:33→20:31)
[2021-04-06] MEDS: Sodium Chloride 0.9% 1,000 ML IV SCH ×2 (06:34→20:25)
[2021-04-06] MEDS: Sucralfate 1 GM/10 ML UDCUP PO SCH ×3 (08:26→20:26)
[2021-04-06] MEDS: Pantoprazole 40 MG VIAL IVP SCH ×2 (08:26→20:26)
[2021-04-06 10:43] LABS: Anion Gap 8 mmol/L (10-20); BUN (Urea Nitrogen) 5 mg/dL (9.8-20.1); Calc. Creatinine Clearance 125 mL/min (70-130); Calcium 8.5 mg/dL (7.8-10.44); Carbon Dioxide 31 mmol/L (23-31); Chloride 105 mmol/L (98-107); Glucose 95 mg/dL (80-115); Sodium 140 mmol/L (136-145)
[2021-04-06 11:26] LABS: #Eosinphils 0.2 thou/uL (0.0-0.7); #Lymphocytes 1.3 thou/uL (1.20-3.40); #Monocytes 0.4 thou/uL (0.11-0.59); #Neutrophils 4.9 thou/uL (1.40-6.50); %Basophils 0.5 % (0.0-1.0); %Eosinophils 3.4 % (0.0-10.0); %Lymphocytes 18.9 % (21.0-51.0); %Monocytes 6.3 % (0.0-10.0); %Neutrophils 70.9 % (42.0-75.0); Hemoglobin 9.1 g/dL (12.0-16.0); Hypochromia SLIGHT = 6-15 cells (100X) (0-5/hpf); MDiff Complete? YES; Mean Corpuscular HGB CONC 29.8 g/dL (32.0-36.0); Mean Corpuscular Hemoglobin 24.9 pg (27.0-31.0); Mean Corpuscular Volume 83.6 fL (78.0-98.0); Mean Platelet Volume 9.7 fL (7.4-10.4); Platelet Count 266 thou/uL (130-400); Platelet Morphology Comment Appears Adequate; Polychromasia SLIGHT = 2-3 cells (100X) (0-2/hpf); RBC Distribution Width 21.8 % (11.5-14.5); Red Blood Cell (RBC) Count 3.64 mill/uL (4.20-5.40); White Blood Cell (WBC) Count 6.9 thou/uL (4.8-10.8)
[2021-04-06] MEDS ORDERED: Bupivacaine 0.25% HCL 30 ML VIAL ONE (11:41)
[2021-04-06] MEDS ORDERED: Lidocaine 1% w/Epinephrine 1:100K 20 ML VIAL ONE (11:41)
[2021-04-06] MEDS ORDERED: Hydrocodone-Acetamin 15 ML UDCUP PO PRN (11:44)
[2021-04-06] MEDS ORDERED: Fentanyl 100 MCG/2 ML VIAL ONE ×2 (13:22→17:17)
[2021-04-06] MEDS ORDERED: SUGAMMADEX SODIUM 200 MG/2 ML VIAL ONE (13:22)
[2021-04-06] MEDS ORDERED: Famotidine/PF 20 mg/2ml Vial ONE (13:22)
[2021-04-06] MEDS ORDERED: ceFAZolin 2 GM/DEX 5% 100 ML BAG ONE (13:23)
[2021-04-06] MEDS ORDERED: Scopolamine 1.5 mg/72 hour Patch ONE (13:25)
[2021-04-06] MEDS ORDERED: EPINEPHrine 1 MG/10 ML Abboject SYRINGE ONE (13:39)
[2021-04-06] MEDS ORDERED: Albuterol Sulfate HFA (OR ONLY) ONE ×2 (13:39→16:14)
[2021-04-06] MEDS ORDERED: Ondansetron PF 4 MG/2 ML Vial ONE (13:39)
[2021-04-06] MEDS ORDERED: Rocuronium Bromide 10 MG/ML (10ML VIAL) ONE (13:39)
[2021-04-06] MEDS ORDERED: Dexamethasone 20 MG/5 ML VIAL ONE (13:39)
[2021-04-06] MEDS ORDERED: PHENYLEPHRINE-NS 100 MCG/ML 10 ML SYRINGE ONE (13:39)
[2021-04-06] MEDS ORDERED: Metoclopramide HCl 10 MG/2 ML VIAL ONE (13:39)
[2021-04-06] MEDS ORDERED: Lidocaine 1% PF 5 ML VIAL ONE (13:39)
[2021-04-06] MEDS ORDERED: PROPOFOL 200 MG/20 ML VIAL ONE (13:39)
[2021-04-06] MEDS ORDERED: ceFOXitin 1 GM VIAL ONE (13:49)
[2021-04-06] MEDS ORDERED: Promethazine HCl 25 MG/ML VIAL IVPB PRN (16:38)
[2021-04-06] MEDS ORDERED: Promethazine HCl 25 MG/ML VIAL IM PRN (16:38)
[2021-04-06] MEDS ORDERED: Ondansetron HCl/PF 4 MG/2 ML Vial IVP PRN (16:38)
[2021-04-06] MEDS ORDERED: Ketorolac Tromethamine 30 MG/ML VIAL IVP PRN (16:38)
[2021-04-06] MEDS ORDERED: hydrALAZINE 20 MG/ML VIAL ONE (18:00)
[2021-04-07] MEDS: Morphine 4 MG/ML VIAL SLOW IVP PRN ×3 (02:41→09:03)
[2021-04-07] MEDS: Pantoprazole 40 MG VIAL IVP SCH (08:16)
[2021-04-07] MEDS: Sucralfate 1 GM/10 ML UDCUP PO SCH (08:16)
[2021-04-07] MEDS ORDERED: Amlodipine 5 MG TAB PO SCH (09:00)
[2021-04-07] MEDS: hydrALAZINE 20 MG/ML VIAL SLOW IVP PRN (13:49)
[2021-04-07 15:38] VITALS: BP 168/70; TEMP 97.9
== END 2021-04-07 15:35 | disposition home or self-care (01) | DRG 328 ==
LOC: ERS 13:50 → ONC 18:00
PROVIDERS: ADMIT Student in an Organized Health Care Education/Training Program; ATTEND Internal Medicine
PROC: 30233N1 Transfusion of Nonautologous Red Blood Cells into Peripheral Vein, Percutaneous Approach (ICD-10-PCS; 2021-04-01)
PROC: 0DBN8ZZ Excision of Sigmoid Colon, Via Natural or Artificial Opening Endoscopic (ICD-10-PCS; 2021-04-03)
PROC: 0DJ08ZZ Inspection of Upper Intestinal Tract, Via Natural or Artificial Opening Endoscopic (ICD-10-PCS; 2021-04-03)
PROC: 0BQT4ZZ Repair Diaphragm, Percutaneous Endoscopic Approach (ICD-10-PCS; principal; 2021-04-06)
PROC: 0DV44ZZ Restriction of Esophagogastric Junction, Percutaneous Endoscopic Approach (ICD-10-PCS; 2021-04-06)
PROC: 8E0W4CZ Robotic Assisted Procedure of Trunk Region, Percutaneous Endoscopic Approach (ICD-10-PCS; 2021-04-06)
DX: K44.9 Diaphragmatic hernia without obstruction or gangrene (principal); Z20.822 Contact with and (suspected) exposure to COVID-19; D50.9 Iron deficiency anemia, unspecified; K63.5 Polyp of colon; H40.9 Unspecified glaucoma; F41.9 Anxiety disorder, unspecified; E66.9 Obesity, unspecified; Z68.33 Body mass index [BMI] 33.0-33.9, adult; N18.2 Chronic kidney disease, stage 2 (mild); I12.9 Hypertensive chronic kidney disease with stage 1 through stage 4 chronic kidney disease, or unspecified chronic kidney disease; D75.839 Thrombocytosis, unspecified; K21.9 Gastro-esophageal reflux disease without esophagitis; K25.9 Gastric ulcer, unspecified as acute or chronic, without hemorrhage or perforation; R63.0 Anorexia; J45.909 Unspecified asthma, uncomplicated; F32.A Depression, unspecified; Z90.49 Acquired absence of other specified parts of digestive tract; Z90.710 Acquired absence of both cervix and uterus; Z79.899 Other long term (current) drug therapy
CPT/HCPCS: 36415; 36430; 74177; 80048; 80053; 81003; 82728; 83540; 83550; 83605; 83690; 84484; 85014; 85018; 85025; 85049; 86850; 86900; 86901; 86922; 88302; 88305; 93005; 96374; 96375; 96376; C9113; J0171; J0360; J0694; J1100; J2270; J2405; J2704; J2765; J2916; J3010; J7050; P9016; P9040; Q9967; S0020; S0028; U0002

== ENCOUNTER 2021-06-06 10:20 | Emergency (ER) | payer MEDICARE, MEDICAID ==
[2021-06-06] MEDS ORDERED: Iopamidol-370 76% 500 ML 1 ML ONE (11:28)
[2021-06-06 12:05] LABS: #Eosinphils 1.4 thou/uL (0.0-0.7); #Lymphocytes 1.8 thou/uL (1.20-3.40); #Monocytes 0.5 thou/uL (0.11-0.59); #Neutrophils 5.5 thou/uL (1.40-6.50); %Basophils 0.3 % (0.0-1.0); %Eosinophils 15.1 % (0.0-10.0); %Lymphocytes 19.7 % (21.0-51.0); %Monocytes 5.4 % (0.0-10.0); %Neutrophils 59.4 % (42.0-75.0); Hemoglobin 12.9 g/dL (12.0-16.0); Mean Corpuscular HGB CONC 31.7 g/dL (32.0-36.0); Mean Corpuscular Hemoglobin 27.8 pg (27.0-31.0); Mean Corpuscular Volume 87.8 fL (78.0-98.0); Mean Platelet Volume 9.4 fL (7.4-10.4); Platelet Count 218 thou/uL (130-400); RBC Distribution Width 16.9 % (11.5-14.5); Red Blood Cell (RBC) Count 4.65 mill/uL (4.20-5.40); White Blood Cell (WBC) Count 9.3 thou/uL (4.8-10.8)
[2021-06-06 12:24] LABS: ALT (SGPT) 9 U/L (8-55); AST (SGOT) 16 U/L (5-34); Albumin 3.7 g/dL (3.4-4.8); Alkaline Phosphatase 111 U/L (40-110); Anion Gap 12 mmol/L (10-20); BUN (Urea Nitrogen) 19 mg/dL (9.8-20.1); Bilirubin, Total 0.2 mg/dL (0.2-1.2); Calc. Creatinine Clearance 0 mL/min (70-130); Calcium 9.6 mg/dL (7.8-10.44); Carbon Dioxide 24 mmol/L (23-31); Chloride 105 mmol/L (98-107); Globulin 3.6 g/dL (2.4-3.5); Glucose 124 mg/dL (80-115); Lipase 256 U/L (8-78); Potassium 4.2 mmol/L (3.5-5.1); Protein, Total 7.3 g/dL (5.8-8.1); Sodium 137 mmol/L (136-145)
[2021-06-06] MEDS ORDERED: Ondansetron ODT 4 MG TAB ONE (13:03)
[2021-06-06] MEDS ORDERED: Ondansetron PF 4 MG/2 ML Vial ONE (13:11)
== END 2021-06-06 16:00 | disposition home or self-care (01) ==
LOC: ERS 10:20
DX: R11.2 Nausea with vomiting, unspecified (principal); J45.909 Unspecified asthma, uncomplicated; Z79.899 Other long term (current) drug therapy
CPT/HCPCS: 36415; 74177; 80053; 83690; 83735; 85025; 96374; J2405; Q0162; Q9967

== ENCOUNTER 2021-07-24 10:06 | Outpatient (CLI) | payer MEDICARE, MEDICAID | END 2021-07-24 10:07 | disposition home or self-care (01) | LOC: BICMAMMO 10:06 | PROVIDERS: ATTEND Family Medicine | DX: R92.8 Other abnormal and inconclusive findings on diagnostic imaging of breast (principal) | CPT/HCPCS: 77066; G0279 ==

== ENCOUNTER 2021-09-17 18:50 | Emergency (ER) | payer MEDICARE, MEDICAID | END 2021-09-17 21:00 | disposition home or self-care (01) | LOC: ERS 18:50 | DX: M25.561 Pain in right knee (principal); M25.461 Effusion, right knee; I10 Essential (primary) hypertension; J45.909 Unspecified asthma, uncomplicated; X50.1XXA Overexertion from prolonged static or awkward postures, initial encounter; Z87.19 Personal history of other diseases of the digestive system; Z79.899 Other long term (current) drug therapy ==

== ENCOUNTER 2021-12-02 22:46 | Emergency (ER) | payer MEDICARE, MEDICAID ==
[2021-12-03 00:04] LABS: #Eosinphils 0.4 thou/uL (0.0-0.7); #Lymphocytes 3.4 thou/uL (1.20-3.40); #Monocytes 0.7 thou/uL (0.11-0.59); #Neutrophils 9.4 thou/uL (1.40-6.50); %Basophils 0.3 % (0.0-1.0); %Eosinophils 2.7 % (0.0-10.0); %Lymphocytes 24.2 % (21.0-51.0); %Monocytes 5.2 % (0.0-10.0); %Neutrophils 67.6 % (42.0-75.0); Mean Corpuscular HGB CONC 33.3 g/dL (32.0-36.0); Mean Corpuscular Hemoglobin 31.1 pg (27.0-31.0); Mean Corpuscular Volume 93.5 fL (78.0-98.0); Mean Platelet Volume 9.2 fL (7.4-10.4); Platelet Count 247 thou/uL (130-400); RBC Distribution Width 11.9 % (11.5-14.5); Red Blood Cell (RBC) Count 4.51 mill/uL (4.20-5.40); White Blood Cell (WBC) Count 13.9 thou/uL (4.8-10.8)
[2021-12-03 00:26] LABS: ALT (SGPT) 57 U/L (8-55); AST (SGOT) 128 U/L (5-34); Alcohol 135 mg/dL (Less than 10); Alkaline Phosphatase 128 U/L (40-110); Anion Gap 17 mmol/L (10-20); BUN (Urea Nitrogen) 16 mg/dL (9.8-20.1); Bilirubin, Total 0.4 mg/dL (0.2-1.2); Calc. Creatinine Clearance 0 mL/min (70-130); Calcium 9.1 mg/dL (7.8-10.44); Carbon Dioxide 21 mmol/L (23-31); Chloride 104 mmol/L (98-107); Estimated GFR 98; Globulin 3.7 g/dL (2.4-3.5); Glucose 198 mg/dL (80-115); Potassium 3.7 mmol/L (3.5-5.1); Protein, Total 7.7 g/dL (5.8-8.1); Sodium 138 mmol/L (136-145)
[2021-12-03] MEDS ORDERED: Boostrix 0.5 ML (Tdap) VIAL ONE (00:30)
== END 2021-12-03 01:17 | disposition home or self-care (01) ==
LOC: ERS 22:46
DX: S01.01XA Laceration without foreign body of scalp, initial encounter (principal); F10.129 Alcohol abuse with intoxication, unspecified; I10 Essential (primary) hypertension; Z79.899 Other long term (current) drug therapy; W19.XXXA Unspecified fall, initial encounter
CPT/HCPCS: 12002; 36415; 70450; 72125; 80053; 80307; 85025; 90471; 90715; 93005

== ENCOUNTER 2022-07-20 11:31 | Outpatient (CLI) | payer MEDICARE, OTHER ==
[~2022-07-20 11:31] MED LIST changes: +GASTROGRAFIN 30 ML BOT ONE; +Iopamidol 370 76% 100 ML VIAL ONE; -Iopamidol-370 76% 500 ML 1 ML ONE
== END 2022-07-20 11:32 | disposition home or self-care (01) ==
LOC: CT 11:31
PROVIDERS: ATTEND Family Medicine
DX: R10.31 Right lower quadrant pain (principal)
CPT/HCPCS: 74177; Q9963; Q9967

== ENCOUNTER 2022-07-25 16:56 | Emergency (ER) | payer MEDICARE, MEDICAID ==
[2022-07-25 17:31] LABS: #Eosinphils 0.2 thou/uL (0.0-0.7); #Lymphocytes 2.4 thou/uL (1.20-3.40); #Monocytes 0.5 thou/uL (0.11-0.59); #Neutrophils 5.8 thou/uL (1.40-6.50); %Basophils 0.3 % (0.0-1.0); %Eosinophils 2.3 % (0.0-10.0); %Lymphocytes 26.9 % (21.0-51.0); %Neutrophils 64.6 % (42.0-75.0); Hemoglobin 13.8 g/dL (12.0-16.0); Mean Corpuscular HGB CONC 32.2 g/dL (32.0-36.0); Mean Corpuscular Hemoglobin 30.2 pg (27.0-31.0); Mean Corpuscular Volume 93.8 fl (78.0-98.0); Mean Platelet Volume 8.9 fL (7.4-10.4); Platelet Count 244 10x3/uL (130-400); RBC Distribution Width 12.4 % (11.5-14.5); Red Blood Cell (RBC) Count 4.59 mill/uL (4.20-5.40); White Blood Cell (WBC) Count 8.9 10x3/uL (4.8-10.8)
[2022-07-25 17:50] LABS: ALT (SGPT) 12 U/L (8-55); AST (SGOT) 16 U/L (5-34); Albumin 3.9 g/dL (3.4-4.8); Alkaline Phosphatase 91 U/L (40-110); Anion Gap 12 mmol/L (10-20); BUN (Urea Nitrogen) 16 mg/dL (9.8-20.1); Bilirubin, Total 0.4 mg/dL (0.2-1.2); Calc. Creatinine Clearance 0 mL/min (70-130); Calcium 9.3 mg/dL (7.8-10.44); Carbon Dioxide 26 mmol/L (23-31); Chloride 104 mmol/L (98-107); Estimated GFR 89; Globulin 3.2 g/dL (2.4-3.5); Glucose 101 mg/dL (80-115); Potassium 4.2 mmol/L (3.5-5.1); Protein, Total 7.1 g/dL (5.8-8.1); Sodium 138 mmol/L (136-145)
[2022-07-25] MEDS ORDERED: Ketorolac Tromethamine 30 MG/ML VIAL ONE (19:22)
[2022-07-25 19:23] LABS: Bacteria/HPF 2+ HPF (None Seen); Bilirubin Negative (Negative); Blood, Urine Negative (Negative); Clarity Clear (Clear); Glucose, Urine (Dipstick) Normal (Negative); Ketone, Urine Negative (Negative); Leukocyte 250 Leu/uL (Negative); Nitrite Negative (Negative); Protein, Urine (Dipstick) Negative (Neg-Trace); RBC/HPF 0-3 HPF (0-3); Specific Gravity, Urine 1.015 (1.002-1.036); Urobilinogen Normal mg/dL (Less than 2)
== END 2022-07-25 20:57 | disposition home or self-care (01) ==
LOC: ERS 16:56
DX: K40.90 Unilateral inguinal hernia, without obstruction or gangrene, not specified as recurrent (principal); I10 Essential (primary) hypertension; H40.9 Unspecified glaucoma; Z79.899 Other long term (current) drug therapy
CPT/HCPCS: 36415; 74176; 80053; 81003; 81015; 85025; 93005; 96372; J1885

== ENCOUNTER 2022-09-08 10:39 | Outpatient (CLI) | payer MEDICARE, MEDICAID | END 2022-09-08 10:40 | disposition home or self-care (01) | LOC: BICMAMMO 10:39 | PROVIDERS: ATTEND Family Medicine | DX: Z12.31 Encounter for screening mammogram for malignant neoplasm of breast (principal) | CPT/HCPCS: 77063; 77067 ==

== ENCOUNTER 2025-02-16 19:02 | Emergency (ER) | payer MEDICARE, MEDICAID ==
[2025-02-16] MEDS ORDERED: HYDROcodone/Acetaminophen 5/325 mg Tablet ONE (21:06)
[2025-02-16] MEDS ORDERED: Boostrix 0.5 ML (Tdap) VIAL (>/=7 yrs of age) ONE (21:35)
== END 2025-02-16 21:43 | disposition home or self-care (01) ==
LOC: ERS 19:02
DX: S00.511A Abrasion of lip, initial encounter (principal); M25.532 Pain in left wrist; I10 Essential (primary) hypertension; W01.0XXA Fall on same level from slipping, tripping and stumbling without subsequent striking against object, initial encounter; Y92.239 Unspecified place in hospital as the place of occurrence of the external cause; Z23 Encounter for immunization; Z55.6 Problems related to health literacy; Z79.899 Other long term (current) drug therapy
CPT/HCPCS: 90471; 90715